=== PATIENT | female | born 1975 | race Caucasian/White ===

== ENCOUNTER 2018-08-25 12:29 | Outpatient (CLI) | payer OTHER, SELFPAY ==
[2018-08-25 13:03] LABS: HCT 41.2 % (36.0-46.0); HGB 13.5 g/dL (12.0-15.5); Mean Corp. HGB Concentration 32.8 g/dL (32.0-36.0); Mean Corpuscular Hemoglobin 28.1 pg (27.0-33.0); Mean Corpuscular Volume 85.7 fL (80-95); Mean Platelet Volume 9.6 fL (8.0-11.0); Platelet Count 335 x1000/uL (130-400); RBC 4.81 m/cumm (4.00-5.20); White Blood Cell Count 7.82 k/cumm (4.4-10.8)
[2018-08-25 13:42] LABS: ALT 20 U/L (12-78); AST 10 U/L (15-37); Albumin 3.4 g/dL (3.4-5.0); Alkaline Phosphatase 55 U/L (46-116); Anion Gap 10.9 mmol/L (3-11); BUN 7 mg/dL (7-18); Bilirubin, Total 0.3 mg/dL (0.2-1.0); CO2 26.1 mmol/L (21.0-32.0); CREATININE 0.61 mg/dL (0.55-1.02); Chloride 105 mmol/L (98-107); Glucose 85 mg/dL (70-100); Potassium 4.1 mmol/L (3.5-5.1); Sodium 142 mmol/L (136-145); Total Protein 6.9 g/dL (6.4-8.2)
[2018-08-25 13:56] LABS: ESR 23 MM/HR (0-20)
== END 2018-08-25 12:49 ==
PROVIDERS: PCP Specialist/Technologist Athletic Trainer; Visit Provider Internal Medicine Rheumatology
DX: M25.50 Pain in unspecified joint (principal); Z79.1 Long term (current) use of non-steroidal anti-inflammatories (NSAID)
CPT/HCPCS: 36415; 80053; 85027; 85652; 86140

== ENCOUNTER 2018-09-18 07:06 | Emergency (ER) | payer OTHER, SELFPAY ==
[2018-09-18 07:14] VITALS: BP 114/90; PULSE 95; RESP 12; TEMP 36.9; O2SAT 97
[2018-09-18] MEDS: Erythromycin Ophth Oint 3.5 GM TUBE OS (07:38)
--- NOTE | 2018-09-18 07:38 | ED.GENADUL_ITS ---
Discharge Plan Disposition Patient Disposition: HOME Condition: Improving Discharge Details Chief Complaint: EyeProblem Clinical Impression: Conjunctivitis Primary Care Provider: [facility] ED Provider: Provider,Temporary Home Meds and New Rx's Prescriptions: New amoxicillin-pot clavulanate 875-125 mg tablet 1 tab PO BID 10 Days Qty: 20 RF: 0 No Action CBD oil -3 times/week 1 ml PO HS RF: 0 L norgest/e.estradiol-e.estrad [Seasonique] 1 EACH tablets,dose pack,3 month 1 tab-cap PO DAILY Qty: 1 RF: 3 bupropion HCl [Wellbutrin] 75 MG tablet 2 tab PO DAILY RF: 0 multivitamin [Multi-Day] 1 EACH tablet 1 tab PO DAILY RF: 0 diclofenac sodium 75 MG tablet,delayed release (DR/EC) 75 mg PO DAILY RF: 0 acetaminophen [Mapap Extra Strength] 500 MG tablet 1,000 mg PO Q6H 5 Days Qty: 60 RF: 0 Discharge Instructions Instructions: Conjunctivitis (ED) Additional Instructions: Please call [facility] eye care tomorrow morning for an appointment in the next couple of days. We will place your name on our care management list to coordinate follow-up as well. Erythromycin ointment 3-4 times daily to left eye for 4-5 days time. Please take Augmentin as prescribed. Return to emergency department for worsening redness, development of pain with movement of the eye, or any other concerns Medical Decision Making 43-year-old female with left conjunctival injection and mild surrounding erythema of the eyelid. No evidence of corneal abrasion, no dendrites, no foreign body. Visual acuity of the affected eye is 20/50; differential diagnosis includes conjunctivitis, preseptal cellulitis. I do not appreciate evidence of post septal cellulitis. Discussed with her that we will treat with both topical and oral antibiotics. She understands return precautions to the ER including worsening, change of vision, pain with movement of the eye. She is a pre-standing patient [facility], and I will ask her to follow-up with them this week for recheck. HPI General Mode of arrival: ambulatory . Date/Time Provider Initiated Documentation: 09/18/18 07:23 . Limitations to Documentation: no limitations . Information obtained by: patient . History of Present Illness 43 year old F presents to the emergency department with the chief complaint of Left eye irritation , described as moderate, Quality is described as constant, and is localized to the eyes and left. Patient reports no radiation. Patient started experiencing this day(s) No exacerbating factors reported . Patient notes no other symptoms.. HPI Narrative: 43-year-old female presents emergency department with 2-3 days of left eye irritation, tearing, swelling of the eyelid that is now progressed to some crusting of the eyelid. She does not have any pain with movement of the eye. not had a fever. No sinus pain or pressure. She states that she has otherwise recently been well Related Data Home Medications Medication Instructions Recorded Confirmed bupropion HCl [Wellbutrin] 2 tab PO DAILY 11/13/15 09/18/18 multivitamin [Multi-Day] 1 tab PO DAILY 03/31/16 09/18/18 diclofenac sodium 75 mg PO DAILY 11/09/16 09/18/18 Cbd Oil 1 ml PO HS 02/01/18 09/18/18 L norgest/e.estradiol-e.estrad 1 tab-cap PO DAILY #1 tab-cap 02/11/18 09/18/18 [Seasonique] acetaminophen [Tylenol Extra 1,000 mg PO Q6H 5 Days #60 tab 05/28/18 09/18/18 Strength] amoxicillin-pot clavulanate 1 tab PO BID 10 Days #20 tab 09/18/18 Previous Rx's Medication Instructions Recorded L norgest/e.estradiol-e.estrad 1 tab-cap PO DAILY #1 tab-cap 02/11/18 [Seasonique] acetaminophen [Tylenol Extra 1,000 mg PO Q6H 5 Days #60 tab 05/28/18 Strength] amoxicillin-pot clavulanate 1 tab PO BID 10 Days #20 tab 09/18/18 Allergies Allergy/AdvReac Type Severity Reaction Status Date / Time No Known Allergies Allergy Unverified 09/18/18 07:19 General Stated Complaint: EyeProblem GEORGI: 4 Review of Systems Review of Systems 6 systems reviewed and otherwise negative PFSH Social History Smoking/Tobacco Use Status: Current every day Surgical History section Cholecystectomy Reduction mammoplasty Exam Narrative Exam Narrative: GEN: awake, alert, oriented 3. Pleasant, well groomed, interactive. HEAD: Normocephalic, atraumatic ENT: Mucous membranes moist, oropharynx unremarkable, External ear exam unremarkable EYES: Visual acuitynoted by nurses 20/25, 20/50 PERRL, EOMI, conjunctival injection. Fluorescein staining and exam performed with no evidence of foreign body, no corneal abrasion, no Eugenia sign. There is erythema and mild swelling of the upper and lower eyelids NECK: Full ROM, no LAUREN, no menigismus Neuro: Grossly normal neurologic exam, conversant, interactive. Psych: Speech fluent, thoughts congruent, affect normal Course Vital Signs Temperature 36.9 C 09/18/18 07:14 Pulse 95 H 09/18/18 07:14 Respiratory Rate 12 09/18/18 07:14 Blood Pressure 114/90 09/18/18 07:14 Pulse Oximetry 97 09/18/18 07:14 Temperature 36.9 C 09/18/18 07:14 Temperature Source Temporal Artery Scan 09/18/18 07:14 Pulse 95 H 09/18/18 07:14 Respiratory Rate 12 09/18/18 07:14 Respiratory Effort Non-Labored 09/18/18 07:17 Blood Pressure 114/90 09/18/18 07:14 Blood Pressure Position Sitting 09/18/18 07:14 Pulse Oximetry 97 09/18/18 07:14 Oxygen Delivery Method Room Air 09/18/18 07:14 Oxygen Flow Rate 0 09/18/18 07:14 Pain Level 6 09/18/18 07:14
== END 2018-09-18 07:42 | disposition home or self-care (01) ==
PROVIDERS: Emergency Provider Emergency Medicine; PCP Specialist/Technologist Athletic Trainer
DX: H10.32 Unspecified acute conjunctivitis, left eye (principal)
CPT/HCPCS: 99283

== ENCOUNTER 2018-09-27 14:29 | Emergency (ER) | payer OTHER, SELFPAY ==
[2018-09-27] VITALS (10 sets, daily range): BP systolic 110–119; BP diastolic 64–87; PULSE 93–121; RESP 14–26; TEMP 36.5–36.7; O2SAT 96–98
--- NOTE | 2018-09-27 14:53 | W.ED.GENAD ---
Discharge Plan Disposition Patient Disposition: HOME Condition: Good Discharge Details Chief Complaint: Allergic Clinical Impression: Urticaria Primary Care Provider: [facility] ED Provider: Isra Gifford Home Meds and New Rx's Prescriptions: New prednisone 20 mg tablet 60 mg PO DAILY 4 Days Qty: 12 RF: 0 No Action CBD oil -3 times/week 1 ml PO HS RF: 0 L norgest/e.estradiol-e.estrad [Seasonique] 1 EACH tablets,dose pack,3 month 1 tab-cap PO DAILY Qty: 1 RF: 3 bupropion HCl [Wellbutrin] 75 MG tablet 2 tab PO DAILY RF: 0 multivitamin [Multi-Day] 1 EACH tablet 1 tab PO DAILY RF: 0 diclofenac sodium 75 MG tablet,delayed release (DR/EC) 75 mg PO DAILY RF: 0 acetaminophen [Mapap Extra Strength] 500 MG tablet 1,000 mg PO Q6H 5 Days Qty: 60 RF: 0 amoxicillin-pot clavulanate 875-125 mg tablet 1 tab PO BID 10 Days Qty: 20 RF: 0 Discharge Instructions Instructions: Urticaria (ED) Medical Decision Making 43 yo female with hx of unspecified arthritis for which she sees a rheumatoligst and states she started a medicine for this with sulfa in it a few weeks ago comes in with itching rash since Wednesday. Was advised to stop the med today and come here for an eval. No respiratory or gi symptoms, normal oropharynx, midline uvula, clear lungs. Has multiple areas of various sizes of mild erythema that blanches and is not tender to palpation. Suspect allrgic reaction, no evidence of anaphylaxis at this time. Will give steroids and benadryl and monitor pt remains stable, clear lungs, no drooling or stridor, hd stable. Will continue oral steroids, advised f/u with her pcp/cement tester assistant and return precautions given Differential Diagnosis urticaria, allergic reaction, anaphylaxis HPI General Mode of arrival: ambulatory. Date/Time Provider Initiated Documentation: 09/27/18 14:34. Limitations to Documentation: no limitations. Information obtained by: patient. History of Present Illness 43 year old F presents to the emergency department with the chief complaint of rash, described as moderate, with intensity rated at 5. Quality is described as other (itching), and is localized to the neck, chest and back. Patient started experiencing this day(s) (2) and it has been constant. other things that improve symptom(s), (benadryl) No exacerbating factors reported . Patient did receive the following treatments prior to arrival, none Related Data Home Medications Medication Instructions Recorded Confirmed bupropion HCl [Wellbutrin] 2 tab PO DAILY 11/13/15 09/18/18 multivitamin [Multi-Day] 1 tab PO DAILY 03/31/16 09/18/18 diclofenac sodium 75 mg PO DAILY 11/09/16 09/18/18 Cbd Oil 1 ml PO HS 02/01/18 09/18/18 L norgest/e.estradiol-e.estrad 1 tab-cap PO DAILY #1 tab-cap 02/11/18 09/18/18 [Seasonique] acetaminophen [Tylenol Extra 1,000 mg PO Q6H 5 Days #60 tab 05/28/18 09/18/18 Strength] amoxicillin-pot clavulanate 1 tab PO BID 10 Days #20 tab 09/18/18 prednisone 60 mg PO DAILY 4 Days #12 tab 09/27/18 Previous Rx's Medication Instructions Recorded L norgest/e.estradiol-e.estrad 1 tab-cap PO DAILY #1 tab-cap 02/11/18 [Seasonique] acetaminophen [Tylenol Extra 1,000 mg PO Q6H 5 Days #60 tab 05/28/18 Strength] amoxicillin-pot clavulanate 1 tab PO BID 10 Days #20 tab 09/18/18 prednisone 60 mg PO DAILY 4 Days #12 tab 09/27/18 Allergies Allergy/AdvReac Type Severity Reaction Status Date / Time No Known Allergies Allergy Unverified 09/18/18 07:19 General Stated Complaint: Allergic GEORGI: 3 Review of Systems Review of Systems All systems reviewed & are unremarkable except as noted in HPI and below Constitutional Denies chills and Denies fever(s) ENT Denies change in voice Cardiovascular Denies chest pain and Denies dyspnea Respiratory Denies dyspnea Gastrointestinal Denies abdominal pain, Denies nausea and Denies vomiting Genitourinary Denies dysuria Exam Const General: no acute distress Orientation: alert [facility] Head: normal to inspection Ears: external ears normal General nose exam: external nose normal Mouth: moist mucous membranes Eyes General: appearance normal, both eyes and all related structures Neck Neck: normal visual inspection Resp Effort & Inspection: normal respiratory effort and able to speak in complete sentences Cardio Rate: regular rate Skin General skin exam: other (urticaria) Neuro General: alert and oriented x3 Extrem General: normal to inspection Psych Mental Status: mental status grossly normal Course Vital Signs Temperature 36.5 C 09/27/18 14:34 Pulse 121 H 09/27/18 14:34 Respiratory Rate 16 09/27/18 14:34 Blood Pressure 119/79 09/27/18 14:34 Pulse Oximetry 96 09/27/18 14:34 Temperature 36.5 C 09/27/18 14:34 Temperature Source Temporal Artery Scan 09/27/18 14:34 Pulse 121 H 09/27/18 14:34 Respiratory Rate 16 09/27/18 14:34 Respiratory Effort 09/27/18 14:44 Respiratory Pattern Tachypnea 09/27/18 14:44 Blood Pressure 119/79 09/27/18 14:34 Blood Pressure Position Sitting 09/27/18 14:34 Pulse Oximetry 96 09/27/18 14:34 Oxygen Delivery Method Room Air 09/27/18 14:34 Oxygen Flow Rate 0 09/27/18 14:34
[2018-09-27] MEDS: diphenhydrAMINE 25 MG CAP PO (14:55)
[2018-09-27] MEDS: predniSONE 20 MG TAB 60 MG PO (14:55)
--- NOTE | 2018-09-27 14:57 | ED.GENADUL_ITS ---
Discharge Plan Disposition Patient Disposition: HOME Condition: Good Discharge Details Chief Complaint: Allergic Clinical Impression: Urticaria Primary Care Provider: [facility] ED Provider: Isra Gifford Home Meds and New Rx's Prescriptions: New prednisone 20 mg tablet 60 mg PO DAILY 4 Days Qty: 12 RF: 0 No Action CBD oil -3 times/week 1 ml PO HS RF: 0 L norgest/e.estradiol-e.estrad [Seasonique] 1 EACH tablets,dose pack,3 month 1 tab-cap PO DAILY Qty: 1 RF: 3 bupropion HCl [Wellbutrin] 75 MG tablet 2 tab PO DAILY RF: 0 multivitamin [Multi-Day] 1 EACH tablet 1 tab PO DAILY RF: 0 diclofenac sodium 75 MG tablet,delayed release (DR/EC) 75 mg PO DAILY RF: 0 acetaminophen [Mapap Extra Strength] 500 MG tablet 1,000 mg PO Q6H 5 Days Qty: 60 RF: 0 amoxicillin-pot clavulanate 875-125 mg tablet 1 tab PO BID 10 Days Qty: 20 RF: 0 Discharge Instructions Instructions: Urticaria (ED) Medical Decision Making 43 yo female with hx of unspecified arthritis for which she sees a rheumatoligst and states she started a medicine for this with sulfa in it a few weeks ago comes in with itching rash since Wednesday. Was advised to stop the med today and come here for an eval. No respiratory or gi symptoms, normal oropharynx, midline uvula, clear lungs. Has multiple areas of various sizes of mild erythema that blanches and is not tender to palpation. Suspect allrgic reaction, no evidence of anaphylaxis at this time. Will give steroids and benadryl and monitor pt remains stable, clear lungs, no drooling or stridor, hd stable. Will continue oral steroids, advised f/u with her pcp/subscription clerk and return precautions given Differential Diagnosis urticaria, allergic reaction, anaphylaxis HPI General Mode of arrival: ambulatory . Date/Time Provider Initiated Documentation: 09/27/18 14:34 . Limitations to Documentation: no limitations . Information obtained by: patient . History of Present Illness 43 year old F presents to the emergency department with the chief complaint of rash, described as moderate, with intensity rated at 5. Quality is described as other (itching), and is localized to the neck, chest and back. Patient started experiencing this day(s) (2) and it has been constant. other things that improve symptom(s), (benadryl) No exacerbating factors reported . Patient did receive the following treatments prior to arrival, none Related Data Home Medications Medication Instructions Recorded Confirmed bupropion HCl [Wellbutrin] 2 tab PO DAILY 11/13/15 09/18/18 multivitamin [Multi-Day] 1 tab PO DAILY 03/31/16 09/18/18 diclofenac sodium 75 mg PO DAILY 11/09/16 09/18/18 Cbd Oil 1 ml PO HS 02/01/18 09/18/18 L norgest/e.estradiol-e.estrad 1 tab-cap PO DAILY #1 tab-cap 02/11/18 09/18/18 [Seasonique] acetaminophen [Tylenol Extra 1,000 mg PO Q6H 5 Days #60 tab 05/28/18 09/18/18 Strength] amoxicillin-pot clavulanate 1 tab PO BID 10 Days #20 tab 09/18/18 prednisone 60 mg PO DAILY 4 Days #12 tab 09/27/18 Previous Rx's Medication Instructions Recorded L norgest/e.estradiol-e.estrad 1 tab-cap PO DAILY #1 tab-cap 02/11/18 [Seasonique] acetaminophen [Tylenol Extra 1,000 mg PO Q6H 5 Days #60 tab 05/28/18 Strength] amoxicillin-pot clavulanate 1 tab PO BID 10 Days #20 tab 09/18/18 prednisone 60 mg PO DAILY 4 Days #12 tab 09/27/18 Allergies Allergy/AdvReac Type Severity Reaction Status Date / Time No Known Allergies Allergy Unverified 09/18/18 07:19 General Stated Complaint: Allergic GEORGI: 3 Review of Systems Review of Systems All systems reviewed & are unremarkable except as noted in HPI and below Constitutional Denies chills and Denies fever(s) ENT Denies change in voice Cardiovascular Denies chest pain and Denies dyspnea Respiratory Denies dyspnea Gastrointestinal Denies abdominal pain, Denies nausea and Denies vomiting Genitourinary Denies dysuria Exam Const General: no acute distress Orientation: alert [facility] Head: normal to inspection Ears: external ears normal General nose exam: external nose normal Mouth: moist mucous membranes Eyes General: appearance normal, both eyes and all related structures Neck Neck: normal visual inspection Resp Effort & Inspection: normal respiratory effort and able to speak in complete sentences Cardio Rate: regular rate Skin General skin exam: other (urticaria) Neuro General: alert and oriented x3 Extrem General: normal to inspection Psych Mental Status: mental status grossly normal Course Vital Signs Temperature 36.5 C 09/27/18 14:34 Pulse 121 H 09/27/18 14:34 Respiratory Rate 16 09/27/18 14:34 Blood Pressure 119/79 09/27/18 14:34 Pulse Oximetry 96 09/27/18 14:34 Temperature 36.5 C 09/27/18 14:34 Temperature Source Temporal Artery Scan 09/27/18 14:34 Pulse 121 H 09/27/18 14:34 Respiratory Rate 16 09/27/18 14:34 Respiratory Effort 09/27/18 14:44 Respiratory Pattern Tachypnea 09/27/18 14:44 Blood Pressure 119/79 09/27/18 14:34 Blood Pressure Position Sitting 09/27/18 14:34 Pulse Oximetry 96 09/27/18 14:34 Oxygen Delivery Method Room Air 09/27/18 14:34 Oxygen Flow Rate 0 09/27/18 14:34
== END 2018-09-27 16:19 | disposition home or self-care (01) ==
PROVIDERS: Emergency Provider Emergency Medicine; PCP Specialist/Technologist Athletic Trainer
DX: L50.0 Allergic urticaria (principal); T49.0X5A Adverse effect of local antifungal, anti-infective and anti-inflammatory drugs, initial encounter
CPT/HCPCS: 99283; J7512

== ENCOUNTER 2018-11-03 08:33 | Emergency (ER) | payer OTHER, SELFPAY ==
[2018-11-03 08:36] VITALS: BP 153/78; PULSE 92; RESP 12; TEMP 36.3; O2SAT 96
--- NOTE | 2018-11-03 08:48 | W.ED.GENAD ---
Discharge Plan Disposition Patient Disposition: HOME Condition: Improving Discharge Details Chief Complaint: Sorethroat Clinical Impression: Acute pharyngitis Primary Care Provider: [facility] ED Provider: Corey Alvarez Home Meds and New Rx's Prescriptions: New penicillin V potassium 500 mg tablet 500 mg PO TID 10 Days Qty: 30 RF: 0 Continued CBD oil -3 times/week 1 ml PO HS RF: 0 L norgest/e.estradiol-e.estrad [Seasonique] 1 EACH tablets,dose pack,3 month 1 tab-cap PO DAILY Qty: 1 RF: 3 bupropion HCl [Wellbutrin] 75 MG tablet 2 tab PO DAILY RF: 0 multivitamin [Multi-Day] 1 EACH tablet 1 tab PO DAILY RF: 0 diclofenac sodium 75 MG tablet,delayed release (DR/EC) 75 mg PO DAILY RF: 0 acetaminophen [Mapap Extra Strength] 500 MG tablet 1,000 mg PO Q6H 5 Days Qty: 60 RF: 0 Discharge Instructions Instructions: Pharyngitis (ED) Additional Instructions: Warm, salt water gargles, Cepacol or other throat lozenges, Tylenol and/or ibuprofen as needed for pain. Small, frequent sips of fluids or popsicles to maintain hydration. Please take penicillin as prescribed for its entire course. Follow-up with regular doctor if not improving in 5 days time Medical Decision Making 43-year-old female presents from home with days of sore throat. She has an exudative pharyngitis and her strep test is positive. She will be placed on a course of penicillin. Discussed with her home management as well as return and follow-up precautions HPI General Mode of arrival: ambulatory. Date/Time Provider Initiated Documentation: 11/03/18 08:44. Limitations to Documentation: no limitations. Information obtained by: patient. History of Present Illness 43 year old F presents to the emergency department with the chief complaint of Sore throat times days with swelling and white exudate, described as moderate and similar to prior episodes, Quality is described as aching, and is localized to the mouth. Patient reports no radiation. Patient started experiencing this day(s) and it has been constant. No relieving factors improve symptom(s), No exacerbating factors reported . Patient notes fever/chills. Related Data Home Medications Medication Instructions Recorded Confirmed bupropion HCl [Wellbutrin] 2 tab PO DAILY 11/13/15 11/03/18 multivitamin [Multi-Day] 1 tab PO DAILY 03/31/16 11/03/18 diclofenac sodium 75 mg PO DAILY 11/09/16 11/03/18 Cbd Oil 1 ml PO HS 02/01/18 11/03/18 L norgest/e.estradiol-e.estrad 1 tab-cap PO DAILY #1 tab-cap 02/11/18 11/03/18 [Seasonique] acetaminophen [Mapap Extra 1,000 mg PO Q6H 5 Days #60 tab 05/28/18 11/03/18 Strength] penicillin V potassium 500 mg PO TID 10 Days #30 tab 11/03/18 Previous Rx's Medication Instructions Recorded L norgest/e.estradiol-e.estrad 1 tab-cap PO DAILY #1 tab-cap 02/11/18 [Seasonique] acetaminophen [Mapap Extra 1,000 mg PO Q6H 5 Days #60 tab 05/28/18 Strength] penicillin V potassium 500 mg PO TID 10 Days #30 tab 11/03/18 Allergies Allergy/AdvReac Type Severity Reaction Status Date / Time No Known Allergies Allergy Unverified 11/03/18 08:38 General Stated Complaint: Sorethroat GEORGI: 4 Review of Systems Review of Systems 6 systems reviewed and otherwise - [facility] Surgical History section Cholecystectomy Reduction mammoplasty Social History Smoking/Tobacco Use Status: Current every day Exam Narrative Exam Narrative: GEN: awake, alert, oriented 3. Pleasant, well groomed, interactive. HEAD: Normocephalic, atraumatic ENT: Mucous membranes moist, oropharynx with erythematous tonsillar pillars with white exudate, the uvula is midline and there is no asymmetry. She has anterior tonsillar lymphadenopathy. Tympanic membranes clear bilaterally, External ear exam unremarkable EYES: PERRL, EOMI NECK: Full ROM, no LAUREN, no menigismus CHEST/RESP: Nontender, clear to auscultation bilateral, no wheeze/rhonchi/rales CARDIOVASCULAR: RRR, no murmur, rub swetha. 2+ Rad pulse bilateral ABDOMEN: Soft, nontender, no mass. +Bowel sounds EXT: Full ROM, no edema, no rash Neuro: Grossly normal neurologic exam, conversant, interactive. Psych: Speech fluent, thoughts congruent, affect normal Course Vital Signs Temperature 36.3 C L 11/03/18 08:36 Pulse 92 H 11/03/18 08:36 Respiratory Rate 12 11/03/18 08:36 Blood Pressure 153/78 H 11/03/18 08:36 Pulse Oximetry 96 11/03/18 08:36 Temperature 36.3 C L 11/03/18 08:36 Temperature Source Temporal Artery Scan 11/03/18 08:36 Pulse 92 H 11/03/18 08:36 Respiratory Rate 12 11/03/18 08:36 Respiratory Effort Non-Labored 11/03/18 08:37 Blood Pressure 153/78 H 11/03/18 08:36 Blood Pressure Position Supine 11/03/18 08:36 Pulse Oximetry 96 11/03/18 08:36 Oxygen Delivery Method Room Air 11/03/18 08:36 Oxygen Flow Rate 0 11/03/18 08:36 Pain Level 8 11/03/18 08:36
--- NOTE | 2018-11-03 08:51 | ED.GENADUL_ITS ---
Discharge Plan Disposition Patient Disposition: HOME Condition: Improving Discharge Details Chief Complaint: Sorethroat Clinical Impression: Acute pharyngitis Primary Care Provider: See [facility] ED Provider: Corey Alvarez Home Meds and New Rx's Prescriptions: New penicillin V potassium 500 mg tablet 500 mg PO TID 10 Days Qty: 30 RF: 0 Continued CBD oil -3 times/week 1 ml PO HS RF: 0 L norgest/e.estradiol-e.estrad [Seasonique] 1 EACH tablets,dose pack,3 month 1 tab-cap PO DAILY Qty: 1 RF: 3 bupropion HCl [Wellbutrin] 75 MG tablet 2 tab PO DAILY RF: 0 multivitamin [Multi-Day] 1 EACH tablet 1 tab PO DAILY RF: 0 diclofenac sodium 75 MG tablet,delayed release (DR/EC) 75 mg PO DAILY RF: 0 acetaminophen [Mapap Extra Strength] 500 MG tablet 1,000 mg PO Q6H 5 Days Qty: 60 RF: 0 Discharge Instructions Instructions: Pharyngitis (ED) Additional Instructions: Warm, salt water gargles, Cepacol or other throat lozenges, Tylenol and/or ibuprofen as needed for pain. Small, frequent sips of fluids or popsicles to maintain hydration. Please take penicillin as prescribed for its entire course. Follow-up with regular doctor if not improving in 5 days time Medical Decision Making 43-year-old female presents from home with days of sore throat. She has an exu dative pharyngitis and her strep test is positive. She will be placed on a course of penicillin. Discussed with her home management as well as return and follow-up precautions HPI General Mode of arrival: ambulatory . Date/Time Provider Initiated Documentation: 11/03/18 08:44 . Limitations to Documentation: no limitations . Information obtained by: patient . History of Present Illness 43 year old F presents to the emergency department with the chief complaint of Sore throat times days with swelling and white exudate, described as moderate and similar to prior episodes, Quality is described as aching, and is localized to the mouth. Patient reports no radiation. Patient started experiencing this day(s) and it has been constant. No relieving factors improve symptom(s), No exacerbating factors reported . Patient notes fever/chills. Related Data Home Medications Medication Instructions Recorded Confirmed bupropion HCl [Wellbutrin] 2 tab PO DAILY 11/13/15 11/03/18 multivitamin [Multi-Day] 1 tab PO DAILY 03/31/16 11/03/18 diclofenac sodium 75 mg PO DAILY 11/09/16 11/03/18 Cbd Oil 1 ml PO HS 02/01/18 11/03/18 L norgest/e.estradiol-e.estrad 1 tab-cap PO DAILY #1 tab-cap 02/11/18 11/03/18 [Seasonique] acetaminophen [Mapap Extra 1,000 mg PO Q6H 5 Days #60 tab 05/28/18 11/03/18 Strength] penicillin V potassium 500 mg PO TID 10 Days #30 tab 11/03/18 Previous Rx's Medication Instructions Recorded L norgest/e.estradiol-e.estrad 1 tab-cap PO DAILY #1 tab-cap 02/11/18 [Seasonique] acetaminophen [Mapap Extra 1,000 mg PO Q6H 5 Days #60 tab 05/28/18 Strength] penicillin V potassium 500 mg PO TID 10 Days #30 tab 11/03/18 Allergies Allergy/AdvReac Type Severity Reaction Status Date / Time No Known Allergies Allergy Unverified 11/03/18 08:38 General Stated Complaint: Sorethroat GEORGI: 4 Review of Systems Review of Systems 6 systems reviewed and otherwise - [facility] Surgical History section Cholecystectomy Reduction mammoplasty Social History Smoking/Tobacco Use Status: Current every day Exam Narrative Exam Narrative: GEN: awake, alert, oriented 3. Pleasant, well groomed, interactive. HEAD: Normocephalic, atraumatic ENT: Mucous membranes moist, oropharynx with erythematous tonsillar pillars with white exudate, the uvula is midline and there is no asymmetry. She has anterior tonsillar lymphadenopathy. Tympanic membranes clear bilaterally, External ear exam unremarkable EYES: PERRL, EOMI NECK: Full ROM, no LAUREN, no menigismus CHEST/RESP: Nontender, clear to auscultation bilateral, no wheeze/rhonchi/rales CARDIOVASCULAR: RRR, no murmur, rub swetha. 2+ Rad pulse bilateral ABDOMEN: Soft, nontender, no mass. +Bowel sounds EXT: Full ROM, no edema, no rash Neuro: Grossly normal neurologic exam, conversant, interactive. Psych: Speech fluent, thoughts congruent, affect normal Course Vital Signs Temperature 36.3 C L 11/03/18 08:36 Pulse 92 H 11/03/18 08:36 Respiratory Rate 12 11/03/18 08:36 Blood Pressure 153/78 H 11/03/18 08:36 Pulse Oximetry 96 11/03/18 08:36 Temperature 36.3 C L 11/03/18 08:36 Temperature Source Temporal Artery Scan 11/03/18 08:36 Pulse 92 H 11/03/18 08:36 Respiratory Rate 12 11/03/18 08:36 Respiratory Effort Non-Labored 11/03/18 08:37 Blood Pressure 153/78 H 11/03/18 08:36 Blood Pressure Position Supine 11/03/18 08:36 Pulse Oximetry 96 11/03/18 08:36 Oxygen Delivery Method Room Air 11/03/18 08:36 Oxygen Flow Rate 0 11/03/18 08:36 Pain Level 8 11/03/18 08:36
== END 2018-11-03 09:06 | disposition home or self-care (01) ==
PROVIDERS: Emergency Provider Emergency Medicine; PCP Specialist/Technologist Athletic Trainer
DX: J02.0 Streptococcal pharyngitis (principal); F17.210 Nicotine dependence, cigarettes, uncomplicated
CPT/HCPCS: 87880; 99283

== ENCOUNTER 2018-11-30 12:07 | Outpatient (CLI) | payer OTHER, SELFPAY ==
[2018-11-30 13:37] LABS: HCT 40.7 % (36.0-46.0); Mean Corp. HGB Concentration 31.9 g/dL (32.0-36.0); Mean Corpuscular Hemoglobin 27.6 pg (27.0-33.0); Mean Corpuscular Volume 86.4 fL (80-95); Mean Platelet Volume 9.9 fL (8.0-11.0); Platelet Count 261 x1000/uL (130-400); RBC 4.71 m/cumm (4.00-5.20); RBC Distribution Width 15.2 % (11.7-14.6); White Blood Cell Count 4.32 k/cumm (4.4-10.8)
[2018-11-30 13:47] LABS: ALT 22 U/L (12-78); AST 19 U/L (15-37); Albumin 3.2 g/dL (3.4-5.0); Alkaline Phosphatase 56 U/L (46-116); Anion Gap 9.1 mmol/L (3-11); BUN 6 mg/dL (7-18); Bilirubin, Total 0.2 mg/dL (0.2-1.0); C-Reactive Protein 2.97 mg/dL (0.0-0.3); CO2 28.9 mmol/L (21.0-32.0); CREATININE 0.79 mg/dL (0.55-1.02); Calcium 8.7 mg/dL (8.5-10.1); Chloride 104 mmol/L (98-107); Glucose 123 mg/dL (70-100); Potassium 3.6 mmol/L (3.5-5.1); Sodium 142 mmol/L (136-145); Total Protein 6.8 g/dL (6.4-8.2)
[2018-11-30 14:29] LABS: ESR 24 MM/HR (0-20)
== END 2018-11-30 12:27 ==
PROVIDERS: PCP Specialist/Technologist Athletic Trainer; Visit Provider Internal Medicine Rheumatology
DX: M13.80 Other specified arthritis, unspecified site (principal); Z79.1 Long term (current) use of non-steroidal anti-inflammatories (NSAID)
CPT/HCPCS: 36415; 80053; 85027; 85652; 86140

== ENCOUNTER 2018-12-06 11:21 | Outpatient (REF) | payer OTHER, SELFPAY ==
[2018-12-07 08:47] LABS: Glucose 90 mg/dL (70-100)
[2018-12-07 18:22] LABS: Cholesterol 241 mg/dL (50-200); HDL Cholesterol 39 mg/dL (40-60); LDL CHOLESTEROL 153 mg/dL (<100); Triglyceride 290 mg/dL (30-150)
[2018-12-08 09:58] LABS: HIV-1/2 Ag & Ab Screen Negative (NEGAT)
[2018-12-08 10:15] LABS: Hepatitis C Ab w Rflx HCV PCR Negative (NEGAT)
== END 2018-12-06 11:41 ==
LOC: NCHCN 11:21
PROVIDERS: PCP Specialist/Technologist Athletic Trainer; Visit Provider Family Medicine
DX: Z00.00 Encounter for general adult medical examination without abnormal findings (principal); Z13.1 Encounter for screening for diabetes mellitus; Z11.59 Encounter for screening for other viral diseases; Z13.220 Encounter for screening for lipoid disorders; Z11.4 Encounter for screening for human immunodeficiency virus [HIV]
CPT/HCPCS: 80061; 82947; 83721; 86803; 87389

== ENCOUNTER 2018-12-08 11:50 | Outpatient (CLI) | payer OTHER, SELFPAY ==
--- NOTE | 2018-12-08 12:18 | DI.RAD_ITS ---
SYMPTOM/DIAGNOSIS: RT HIP AND PELVIS PAIN, FELL, INJURY, W19.XXXA RIGHT HIP AND PELVIS: Comparison is made with 09/16/16. The hip joint spaces are well maintained. There is mild superior acetabular spurring. Femoral heads appear intact. SI joints are unremarkable. IMPRESSION: Minimal acetabular spurring.
[2018-12-08 13:14] LABS: TSH (W/Ref FT4) 1.23 uIU/mL (0.358-3.74)
== END 2018-12-08 12:10 ==
PROVIDERS: PCP Specialist/Technologist Athletic Trainer; Visit Provider Internal Medicine Rheumatology
DX: R63.4 Abnormal weight loss (principal); M25.551 Pain in right hip; R10.2 Pelvic and perineal pain; W19.XXXA Unspecified fall, initial encounter
CPT/HCPCS: 36415; 73502; 84443

== ENCOUNTER 2018-12-29 00:28 | Outpatient (CLI) | payer OTHER, SELFPAY ==
--- NOTE | 2018-12-29 09:45 | DI.CT_ITS ---
SYMPTOM/DIAGNOSIS: UNINTENTIONAL WT LOSS, R63.4, PRIOR TO STARTING METHOTREXATE CHEST/ABDOMEN AND PELVIC CT: CT scan of the chest, abdomen and pelvis was performed following the uneventful administration of intravenous and oral contrast material. There are no priors for comparison. ABDOMEN AND PELVIS: The liver is normal in size. No hepatic mass is seen The portal, superior mesenteric and splenic veins are patent. The patient is status post cholecystectomy. No biliary ductal dilatation is present. The pancreas and spleen are unremarkable. There is nodularity of the adrenal glands. The right adrenal gland nodule measures 2 by 1.6 cm. The left adrenal gland nodule measures 1.3 by 0.5 cm. The kidneys show normal and symmetric enhancement. No solid renal mass is appreciated. No evidence of obstruction is seen. The urinary bladder is intact. The reproductive organs are unremarkable. The abdominal aorta is of normal caliber. No significant abdominal or pelvic adenopathy, ascites or pneumoperitoneum is present. There is question of bowel wall thickening in the proximal transverse colon. The segment measures approximately 4 cm. in length. While this may represent peristalsis or decompressed bowel, a mass cannot be entirely excluded in this region. The remainder of the colon is normal in caliber and appearance. There is no evidence of an acute appendicitis. The small bowel is unremarkable. Degenerative changes are seen in the spine. IMPRESSION: 1. Question of bowel wall thickening and luminal narrowing seen in the proximal transverse colon. This may represent decompressed bowel/peristalsis but a mass cannot be excluded. No significant pericolonic inflammatory changes are seen to suggest inflammatory or infectious process. Barium enema should be considered for further evaluation in this patient. 2. Bilateral adrenal nodules. These are nonspecific but may represent adrenal adenomas. Follow up as clinically appropriate. 3. Status post cholecystectomy. CHEST: The thoracic aorta is of normal caliber. Heart size is within normal limits. No significant pericardial effusion is seen. No pleural effusion or pneumothorax is identified. No significant thoracic adenopathy is identified. Dependent atelectatic changes are seen in the lung bases. No focal consolidating infiltrates are seen. No pulmonary nodules are identified. The tracheobronchial tree is unremarkable. There is a sclerotic focus seen in the T 10 vertebral body and the C 6 vertebral body. These findings are nonspecific. IMPRESSION: 1. No evidence of thoracic adenopathy or pulmonary mass. 2. Two sclerotic foci seen, one in the cervical and one in the thoracic spine. These are nonspecific. If there is continued concern, a bone scan and/or MRI may be considered for further evaluation.
[2018-12-29] MEDS: Breeza Beverage 473 ML BTL PO ×2 (09:47→09:48)
[2018-12-29] MEDS: Omnipaque 350 MG/ML 100 ML BTL IJ (09:48)
[2018-12-29] MEDS: Omnipaque 350 MG/ML 50 ML BTL PO (09:48)
[2018-12-29] MEDS: Normal Saline Flush 10 ML SYR IVP (09:49)
== END 2018-12-29 00:48 ==
PROVIDERS: PCP Specialist/Technologist Athletic Trainer; Visit Provider Specialist/Technologist Athletic Trainer
DX: R63.4 Abnormal weight loss (principal); K63.89 Other specified diseases of intestine; E27.8 Other specified disorders of adrenal gland; M13.80 Other specified arthritis, unspecified site
CPT/HCPCS: 74177; 71260; J3490; Q9967

== ENCOUNTER 2019-01-10 00:40 | Outpatient (CLI) | payer OTHER, SELFPAY ==
--- NOTE | 2019-01-10 09:45 | DI.NM_ITS ---
SYMPTOMS/DIAGNOSIS: ABNORMAL CHEST CT, R91.8, SCLEROSIS AT C6 AND T10 WHOLE BODY BONE SCAN: Comparison is made with CT of the chest, abdomen and pelvis dated December,. 25.2 mCi of technetium 99m MDP was administered IV. There is faintly increased activity on the left side of the mid to lower thoracic spine, which appears to correspond to the T9 level on the left. There is mildly increased activity seen in the left ankle. The remainder of the skeletal labelling is unremarkable. No increased activity is seen in the lower thoracic or lumbar spine where additional small sclerotic lesions are seen. The largest sclerotic lesion is in the L3 vertebral body. There is no abnormal increased activity in this area. IMPRESSION: No suspicious bony labelling is identified.
== END 2019-01-10 01:00 ==
PROVIDERS: PCP Specialist/Technologist Athletic Trainer; Visit Provider Specialist/Technologist Athletic Trainer
DX: R91.8 Other nonspecific abnormal finding of lung field (principal); M89.8X8 Other specified disorders of bone, other site
CPT/HCPCS: 78306

== ENCOUNTER 2019-01-12 00:33 | Outpatient (CLI) | payer OTHER, SELFPAY ==
--- NOTE | 2019-01-12 10:23 | DI.RAD_ITS ---
SYMPTOM/DIAGNOSIS: F/U ABNL FINDINGS ON CT, R93.5, POSSIBLE BOWEL WALL THICKENING AND LUMINAL NARROWING IN PROX COLON, H/O WT LOSS AIR CONTRAST BARIUM ENEMA: Fluoroscopy Time: 1.[address] scan is 12/29/18. The preliminary view of the abdomen shows no evidence of bowel obstruction. There are surgical clips in the right upper quadrant of the abdomen consistent with prior cholecystectomy. Air contrast barium enema was performed according to protocol. The patient tolerated the procedure well and left the department in stable condition. There is no bowel wall thickening. No intraluminal or extraluminal masses are identified. There is normal reflex seen into the small bowel. The appendix appears grossly unremarkable. IMPRESSION: Normal barium enema.
== END 2019-01-12 00:53 ==
PROVIDERS: PCP Specialist/Technologist Athletic Trainer; Visit Provider Specialist/Technologist Athletic Trainer
DX: K63.89 Other specified diseases of intestine (principal); R63.4 Abnormal weight loss; R93.5 Abnormal findings on diagnostic imaging of other abdominal regions, including retroperitoneum
CPT/HCPCS: 74280

== ENCOUNTER 2019-02-09 16:44 | Outpatient (REF) | payer OTHER, SELFPAY ==
[2019-02-13 14:05] LABS: Chlamydia Result Negative; GC Result Negative; Specimen Description CERVIX
== END 2019-02-09 17:04 ==
LOC: LBN 16:44
PROVIDERS: PCP Specialist/Technologist Athletic Trainer; Visit Provider Obstetrics & Gynecology
DX: Z11.3 Encounter for screening for infections with a predominantly sexual mode of transmission (principal); Z01.419 Encounter for gynecological examination (general) (routine) without abnormal findings
CPT/HCPCS: 87491; 87591

== ENCOUNTER 2019-03-22 02:18 | Outpatient (CLI) | payer OTHER, SELFPAY | END 2019-03-22 02:38 | PROVIDERS: PCP Specialist/Technologist Athletic Trainer; Visit Provider Internal Medicine | DX: E27.9 Disorder of adrenal gland, unspecified (principal) | CPT/HCPCS: 36415; 82533 ==

== ENCOUNTER 2019-03-31 07:18 | Outpatient (CLI) | payer OTHER, SELFPAY ==
[2019-04-04 09:00] LABS: Dexamethasone Suppression 3 ug/dl
== END 2019-03-31 07:38 ==
PROVIDERS: PCP Specialist/Technologist Athletic Trainer; Visit Provider Internal Medicine
DX: E27.9 Disorder of adrenal gland, unspecified (principal)
CPT/HCPCS: 36415; 82533

== ENCOUNTER 2019-04-04 12:00 | Outpatient (REF) | payer OTHER, SELFPAY ==
[2019-04-05 09:15] LABS: Creatinine,Urine 195.95 mg/dL
[2019-04-05 09:26] LABS: Creatinine,24hr Ur 1.18 g/24hr (0.60-1.80); Total Volume 675 ml
[2019-04-07 17:58] LABS: Cortisol, U 15 mcg/24 h (3.5-45); Urine Volume 675 mL
== END 2019-04-04 12:20 ==
LOC: LBN 12:00
PROVIDERS: PCP Specialist/Technologist Athletic Trainer; Visit Provider Internal Medicine
DX: E27.9 Disorder of adrenal gland, unspecified (principal)
CPT/HCPCS: 81050; 82530; 82570; 83789

== ENCOUNTER 2019-04-06 11:20 | Outpatient (CLI) | payer OTHER, SELFPAY ==
[2019-04-06 11:56] LABS: HCT 40.5 % (36.0-46.0); HGB 13.2 g/dL (12.0-15.5); Mean Corp. HGB Concentration 32.6 g/dL (32.0-36.0); Mean Platelet Volume 9.6 fL (8.0-11.0); Platelet Count 349 x1000/uL (130-400); RBC 4.71 m/cumm (4.00-5.20); RBC Distribution Width 14.5 % (11.7-14.6); White Blood Cell Count 9.88 k/cumm (4.4-10.8)
[2019-04-06 12:31] LABS: ESR 22 MM/HR (0-20)
[2019-04-06 12:56] LABS: ALT 21 U/L (12-78); AST 14 U/L (15-37); Albumin 3.4 g/dL (3.4-5.0); Alkaline Phosphatase 58 U/L (46-116); Anion Gap 10.2 mmol/L (3-11); BUN 10 mg/dL (7-18); Bilirubin, Total 0.2 mg/dL (0.2-1.0); C-Reactive Protein 1.89 mg/dL (0.0-0.3); CO2 25.8 mmol/L (21.0-32.0); CREATININE 0.71 mg/dL (0.55-1.02); Calcium 9.4 mg/dL (8.5-10.1); Chloride 105 mmol/L (98-107); Glucose 117 mg/dL (70-100); Potassium 3.9 mmol/L (3.5-5.1); Sodium 141 mmol/L (136-145); Total Protein 6.9 g/dL (6.4-8.2)
== END 2019-04-06 11:40 ==
PROVIDERS: PCP Specialist/Technologist Athletic Trainer; Visit Provider Internal Medicine Rheumatology
DX: M13.80 Other specified arthritis, unspecified site (principal); Z79.1 Long term (current) use of non-steroidal anti-inflammatories (NSAID)
CPT/HCPCS: 36415; 80053; 85027; 85652; 86140

== ENCOUNTER 2020-06-03 16:02 | Outpatient (REF) | payer OTHER, SELFPAY ==
[2020-06-05 18:50] LABS: SARS-CoV-2 RNA Undetected (Undetected); SARS-CoV-2 Specimen Source Nasopharynx
== END 2020-06-03 16:22 ==
LOC: NCHCN 16:02
PROVIDERS: PCP Specialist/Technologist Athletic Trainer; Visit Provider Nurse Practitioner Family
DX: Z11.59 Encounter for screening for other viral diseases (principal)
CPT/HCPCS: U0003

== ENCOUNTER 2020-06-04 00:25 | Outpatient (CLI) | payer OTHER, SELFPAY ==
[2020-06-04] MEDS: Omnipaque 350 MG/ML 50 ML BTL IJ (06:50)
[2020-06-04] MEDS: Breeza Beverage 473 ML BTL PO ×2 (06:52→06:53)
--- NOTE | 2020-06-04 08:54 | DI.CT_ITS ---
EXAM: CT ABDOMEN PELVIS W CLINICAL HISTORY: ACUTE ABD PAIN, R10.9. TECHNIQUE: Imaging Protocol: Axial computed tomography images with coronal and sagittal reformatted images were created and reviewed CONTRAST MATERIAL: Intravenous: Omnipaque 350 Contrast volume:100 ml Oral: yes / COMPARISON: CT CT CHEST/ABD/PEL W from 12/29/2018 FINDINGS: ABDOMEN: Lung Bases: Normal where visualized. Liver: Normal density. No measurable mass. Gallbladder and biliary tract: Status post cholecystectomy. Pancreas: Normal density, no abnormal calcifications or inflammatory process. Spleen: Normal. Kidneys: Normal size, contour and axis. No radiodense stones or obstructive uropathy. No masses seen. Adrenal glands: Stable small low-density adrenal nodules.. Abdominal Aorta: Abdominal portion non-dilated. PELVIS: Bladder: Symmetric distention, no gross wall thickening. Bowel: There is wall thickening of the distal rectum. There is no evidence of abscess or perforation . The remainder of the colon is unremarkable. There is a normal quantity of stool. No diverticula are seen. The small bowel is unremarkable. The appendix appears normal. Peritoneal cavity: No ascites, collection or mesenteric inflammatory response. Bones: Mild degenerative disc changes. Reproductive organs: Within normal limits. Lymph nodes: Unremarkable. Impression: Inflammation of the distal rectum. RADIATION DOSE DELIVERED: Total DLP DATA REPOSITORY: All CT scans at this facility are submitted to the National Radiology Data Registry (NRDR) Dose Index Registry (DIR) with the [employer] (A[employer]). RADIATION OPTIMIZATION: All CT scans at this facility use at least one of these dose optimization te chniques: automated exposure control; mA and/or kV adjustment per patient size (includes targeted exa ms where dose is matched to clinical indication); or iterative reconstruction.
[2020-06-04] MEDS: Normal Saline - Diluent 50 ML VIAL IV (08:59)
[2020-06-04] MEDS: Omnipaque 350 MG/ML 100 ML BTL IJ (09:00)
[2020-06-04] MEDS: Normal Saline Flush 10 ML SYR IVP (09:02)
[2020-06-04 09:12] LABS: HCT 38.5 % (36.0-46.0); HGB 12.8 g/dL (12.0-15.5); Mean Corp. HGB Concentration 33.2 g/dL (32.0-36.0); Mean Corpuscular Hemoglobin 27.6 pg (27.0-33.0); Mean Platelet Volume 9.5 fL (8.0-11.0); Platelet Count 238 x1000/uL (130-400); RBC 4.64 m/cumm (4.00-5.20); RBC Distribution Width 14.8 % (11.7-14.6); White Blood Cell Count 8.03 k/cumm (4.4-10.8)
[2020-06-04 09:27] LABS: C-Reactive Protein 6.81 mg/dL (0.0-0.3)
[2020-06-04 09:30] LABS: ALT 60 U/L (14-59); AST 58 U/L (15-37); Albumin 2.8 g/dL (3.4-5.0); Alkaline Phosphatase 83 U/L (46-116); Anion Gap 11.2 mmol/L (3-11); BUN 6 mg/dL (7-18); Bilirubin, Total 0.4 mg/dL (0.2-1.0); CO2 25.8 mmol/L (21.0-32.0); CREATININE 0.77 mg/dL (0.55-1.02); Calcium 8.3 mg/dL (8.5-10.1); Chloride 102 mmol/L (98-107); Glucose 84 mg/dL (74-106); Potassium 3.4 mmol/L (3.5-5.1); Sodium 139 mmol/L (136-145); Total Protein 6.7 g/dL (6.4-8.2)
== END 2020-06-04 00:45 ==
PROVIDERS: PCP Specialist/Technologist Athletic Trainer; Visit Provider Nurse Practitioner Family
DX: R10.9 Unspecified abdominal pain (principal); K62.89 Other specified diseases of anus and rectum
CPT/HCPCS: 80053; 85027; 74177; 86140; J3490; Q9967

== ENCOUNTER 2020-06-10 09:16 | Outpatient (REF) | payer OTHER, SELFPAY ==
[2020-06-11 11:07] LABS: Campylobacter PCR Negative (Negative); Salmonella PCR Negative (Negative); Shiga Toxin PCR Negative (Negative); Shigella/Enteroinvasive Ecoli Negative (Negative)
[2020-06-12 17:03] LABS: Calprotectin <15.6 mcg/g
== END 2020-06-10 09:36 ==
LOC: NCHCN 09:16
PROVIDERS: PCP Specialist/Technologist Athletic Trainer; Referring Provider Nurse Practitioner Family; Visit Provider Nurse Practitioner Family
DX: R10.9 Unspecified abdominal pain (principal)
CPT/HCPCS: 87329; 87505; 83993; 87324

== ENCOUNTER 2020-07-18 16:34 | Emergency (ER) | payer OTHER, SELFPAY ==
[2020-07-18 16:38] VITALS: BP 138/79; PULSE 101; RESP 16; TEMP 36.1; O2SAT 98
--- NOTE | 2020-07-18 16:45 | DI.RAD_ITS ---
EXAM: XR HIP LT COMPLETE AP PELVIS CLINICAL HISTORY: pain s/p fall. TECHNIQUE: 2D digital imaging was performed. COMPARISON: CT CT ABDOMEN PELVIS W from 06/04/2020 FINDINGS: BONES: No acute fracture is present. No bony destructive lesion is seen. There is a small enthesophyt e of the greater trochanter on the left. This can be seen on the prior CT scan from 06/04/2020. JOINTS: No dislocation present. SOFT TISSUE: Normal. IMPRESSION: Unremarkable radiographs of the left hip. Unremarkable radiographs of the pelvis DATA REPOSITORY: RADIATION DOSE DELIVERED:
--- NOTE | 2020-07-18 16:47 | ED.GENADUL_ITS ---
Discharge Plan Disposition Patient Disposition: HOME Condition: Stable Discharge Details Clinical Impression: Contusion of knee, left, Contusion of hip, left, Wound infection Primary Care Provider: See [facility] ED Provider: Isra Gifford Home Meds and New Rx's Prescriptions: New amoxicillin-pot clavulanate [Augmentin] 875-125 mg tablet 1 tab PO BID Qty: 14 RF: 0 Continued L norgest/e.estradiol-e.estrad [Seasonique] 1 EACH tablets,dose pack,3 month 1 tab-cap PO DAILY Qty: 1 RF: 3 bupropion HCl [Wellbutrin] 75 MG tablet 2 tab PO DAILY RF: 0 multivitamin [Multi-Day] 1 EACH tablet 1 tab PO DAILY RF: 0 acetaminophen [Mapap Extra Strength] 500 MG tablet 1,000 mg PO Q6H 5 Days Qty: 60 RF: 0 ibuprofen [Ibuprofen IB] 200 mg Tablet 400 mg PO PRN PRNRF: 0 Discharge Instructions Instructions: Contusion in Adults (ED) Additional Instructions: you can take 1000mg tylenol and 600mg ibuprofen every 6 hours for pain as needed if pain is not improving within a week follow up with your primary care provider return to the emergency department for severe worsening pain, fevers or if you feel more ill Medical Decision Making 45 yo female comes in with left knee pain. She states yesterday she was going up a stone step and fell with her left knee landing on the step. No head trauma or loc. No head pain, neck pain, chest pain, abdominal pain, arm pain or right leg pain. HAs pain over anterior knee with several small abrasions and erythema, no deep lacerations. Does have full rom of the knee though with pain and has swelling anteriorly. No bony tenderness of the left hip and no ankle tenderness normal sensation and normal pulses. Does have some discomfort in hip with sitting on the left.Suspect contusion but will obtain xrays to evaluate for fx no acute findings on imaging, suspect contusion. Will have her continue RICE therapy and advised f/u with pcp if still in pain in a week return precautions given. I am placing on an antibiotic given she does have mild erythema surrounding her abrasions to cover for wound infection Differential Diagnosis Differential Diagnosis: contusion, fracture, abrasion Imaging Data Radiologic Study: Attestation: I personally reviewed and interpreted this imaging study as follows: Imaging: X-Ray Radiologist's impression: knee xray IMPRESSION: 1. No acute fracture. 2. Possible small joint effusion. 3. Mild medial femorotibial joint space narrowing suggesting early osteoarthritis. 4. Mild prepatellar edema. Radiologic Study #2: Attestation: I personally reviewed and interpreted this imaging study as follows: Imaging: X-Ray Radiologist's impression: PROCEDURE INFORMATION: Exam: XR Left Hip with Pelvis when Performed Exam date and time: 07/18/2020 5:14 PM Age: 45 years old Clinical indication: Other: Pain, S/P fall; Patient HX: Fall yesterday TECHNIQUE: Imaging protocol: XR Left hip with pelvis when performed. Views: 2 or 3 views. COMPARISON: CT ABDOMEN PELVIS W 06/04/2020 8:48 AM FINDINGS: Bones/joints: There is a small enthesophyte of the left greater trochanter unchanged compared to prior CT scan. No fracture, dislocation, or other acute abnormality. Soft tissues: Unremarkable. IMPRESSION: No acute findings. HPI General Mode of arrival: ambulatory . Date/Time Provider Initiated Documentation: 07/18/20 16:34 . Limitations to Documentation: no limitations . Information obtained by: patient . History of Present Illness 45 year old F presents to the emergency department with the chief complaint of left knee pain, described as moderate, and it has been constant. Rest improves symptom(s), Movement worsens symptoms . Patient did receive the following treatments prior to arrival, none Related Data Home Medications Medication Instructions Recorded Confirmed bupropion HCl [Wellbutrin] 2 tab PO DAILY 11/13/15 07/18/20 multivitamin [Multi-Day] 1 tab PO DAILY 03/31/16 07/18/20 L norgest/e.estradiol-e.estrad 1 tab-cap PO DAILY #1 tab-cap 02/11/18 07/18/20 [Seasonique] acetaminophen [Mapap Extra 1,000 mg PO Q6H 5 Days #60 tab 05/28/18 02/09/19 Strength] amoxicillin-pot clavulanate 1 tab PO BID #14 tab 07/18/20 [Augmentin] ibuprofen [Ibuprofen IB] 400 mg PO PRN PRN 07/18/20 07/18/20 Previous Rx's Medication Instructions Recorded L norgest/e.estradiol-e.estrad 1 tab-cap PO DAILY #1 tab-cap 02/11/18 [Seasonique] acetaminophen [Mapap Extra 1,000 mg PO Q6H 5 Days #60 tab 05/28/18 Strength] amoxicillin-pot clavulanate 1 tab PO BID #14 tab 07/18/20 [Augmentin] Allergies Allergy/AdvReac Type Severity Reaction Status Date / Time Sulfa (Sulfonamide Allergy Severe Hives Verified 07/18/20 16:42 Antibiotics) General Stated Complaint: Laceration GEORGI: 4 Review of Systems All systems reviewed & are unremarkable except as noted in HPI and below Constitutional Constitutional: Denies chills, Denies fever(s) and Denies weakness Cardiovascular Cardiovascular: Denies chest pain and Denies dyspnea Respiratory Respiratory: Denies cough and Denies dyspnea Gastrointestinal Gastrointestinal: Denies abdominal pain, Denies nausea and Denies vomiting Musculoskeletal Musculoskeletal: Denies joint swelling Neurologic Neurologic: Denies weakness Psychiatric Psychiatric: Denies depression [facility] Surgical History section Cholecystectomy Reduction mammoplasty Social History Smoking/Tobacco Use Status: Current every day Tobacco: How many years used: 25 Alcohol Intake: current Alcohol Intake frequency: a few times a month Drug use: Rarely Substance use type: marijuana Counseling given: No Do you feel safe at home: Yes Do you feel safe in your relationship?: Yes Female Reproductive History Menstrual Age of Menarche: 11 Duration of menses: 3-5 days control method: pills History History 3 Para 2 Hx # Term Pregnancies 2 Multiple births Hx # Pregnancies Ectopic pregnancies AB induced 1 Hx Number of Living Children 2 AB spontaneous Exam Const General: no acute distress Orientation: alert HENMT Head: normal to inspection Ears: external ears normal General nose exam: external nose normal Mouth: moist mucous membranes Eyes General: appearance normal, both eyes and all related structures Neck Neck: normal visual inspection Resp Effort & Inspection: normal respiratory effort and able to speak in complete sentences Cardio Rate: regular rate Skin General skin exam: no rashes or lesions noted Neuro General: patient alert and patient oriented x3 Extrem General: full ROM and capillary refill normal Psych Mental Status: mental status grossly normal Course Vital Signs Vital signs: Vital Signs Temperature 36.1 C L 07/18/20 16:38 Pulse 101 H 07/18/20 16:38 Respiratory Rate 16 07/18/20 16:38 Blood Pressure 138/79 07/18/20 16:38 Pulse Oximetry 98 07/18/20 16:38 Temperature 36.1 C L 07/18/20 16:38 Temperature Source Skin 07/18/20 16:38 Pulse 101 H 07/18/20 16:38 Respiratory Rate 16 07/18/20 16:38 Blood Pressure 138/79 07/18/20 16:38 Blood Pressure Position Sitting 07/18/20 16:38 Pulse Oximetry 98 07/18/20 16:38 Oxygen Delivery Method Room Air 07/18/20 16:38 Oxygen Flow Rate 0 07/18/20 16:38 Pain Level 8 07/18/20 16:38 Comment has taken ibuprofen and tylenol 07/18/20 16:38
[2020-07-18] MEDS: Acetaminophen 500 MG TAB 1000 MG PO (17:00)
--- NOTE | 2020-07-18 17:00 | DI.RAD_ITS ---
EXAM: XR KNEE LT 3V AP,LAT,ROMEO CLINICAL HISTORY: pain s/p fall. TECHNIQUE: 2D digital imaging was performed. COMPARISON: No exams were available for comparison FINDINGS: BONES: No acute fracture is present. No bony destructive lesion is seen. JOINTS: The knee is normally aligned. No joint effusion is seen. SOFT TISSUE: Prepatellar soft tissue swelling. IMPRESSION: 1. No acute fracture or dislocation. 2. Prepatellar soft tissue swelling. DATA REPOSITORY: RADIATION DOSE DELIVERED:
--- NOTE | 2020-07-18 17:29 | DI.VRAD_ITS ---
PROCEDURE INFORMATION: Exam: XR Left Knee Exam date and time: 07/18/2020 5:15 PM Age: 45 years old Clinical indication: Other: Pain, S/P fall TECHNIQUE: Imaging protocol: XR Left knee. Views: 3 views. COMPARISON: No relevant prior studies available. FINDINGS: Bones/joints: There is mild medial femorotibial joint space narrowing consistent with mild osteoarthritis. No fracture, dislocation, or other acute bone or articular abnormality. Soft tissues: There is mild prepatellar soft tissue swelling. Minimal increased density in the suprapatellar space may represent a very small joint effusion. IMPRESSION: 1. No acute fracture. 2. Possible small joint effusion. 3. Mild medial femorotibial joint space narrowing suggesting early osteoarthritis. 4. Mild prepatellar edema. Dictated and Authenticated by: David Monique MD. Ordering:MUNA Dhaliwal MD
--- NOTE | 2020-07-18 17:33 | DI.VRAD_ITS ---
PROCEDURE INFORMATION: Exam: XR Left Hip with Pelvis when Performed Exam date and time: 07/18/2020 5:14 PM Age: 45 years old Clinical indication: Other: Pain, S/P fall; Patient HX: Fall yesterday TECHNIQUE: Imaging protocol: XR Left hip with pelvis when performed. Views: 2 or 3 views. COMPARISON: CT ABDOMEN PELVIS W 06/04/2020 8:48 AM FINDINGS: Bones/joints: There is a small enthesophyte of the left greater trochanter unchanged compared to prior CT scan. No fracture, dislocation, or other acute abnormality. Soft tissues: Unremarkable. IMPRESSION: No acute findings. Dictated and Authenticated by: David Monique MD. Ordering:MUNA Dhaliwal MD
== END 2020-07-18 18:00 | disposition home or self-care (01) ==
PROVIDERS: Emergency Provider Emergency Medicine; PCP Specialist/Technologist Athletic Trainer
DX: S80.02XA Contusion of left knee, initial encounter (principal); S70.02XA Contusion of left hip, initial encounter; W10.8XXA Fall (on) (from) other stairs and steps, initial encounter; L08.89 Other specified local infections of the skin and subcutaneous tissue
CPT/HCPCS: 73562; 99284; 73502

== ENCOUNTER 2021-01-23 15:23 | Outpatient (REF) | payer OTHER, SELFPAY ==
--- NOTE | 2021-01-23 14:00 | PAPFT_PTH ---
PATIENT: Rupali Hadley LOC: [facility] U#:[id number] AGE/SX: 45/F ROOM: RE01/23/[address]: SURAJ Samuel : 1975 BED: DIS: 01/23/2021 SPEC #: [id number] RECD: 01/23/21 17:30 STATUS: SIMEON REMalathi #: [id number] YAN: 01/23/21 14:[address]: Carolina Sharma DEPT: FORMERLY [facility], 1928–1983 Cytology RECD BY: Celine Nguyen ENTERED: 01/23/21 17:31 SP TYPE: PAPFT OT DR: See Tinajero Tissues: 1 - CX/ENDOCX FOR PAP SMEARS Procedures: PAP THIN PREP/[facility] Screening HPV DNA PROBE Comments: [id number]
[2021-01-24 16:25] LABS: Chlamydia Result Negative (Negative); GC Result Negative (Negative)
== END 2021-01-23 15:24 | disposition home or self-care (01) ==
LOC: LBN 15:23
PROVIDERS: PCP Specialist/Technologist Athletic Trainer; Visit Provider Nurse Practitioner Family
DX: Z11.3 Encounter for screening for infections with a predominantly sexual mode of transmission (principal); Z12.4 Encounter for screening for malignant neoplasm of cervix; Z11.51 Encounter for screening for human papillomavirus (HPV)
CPT/HCPCS: 87491; 87591; 88142; 87624

== ENCOUNTER → 2021-01-27 02:07 | Outpatient (CLI) | payer OTHER, SELFPAY ==
--- NOTE | 2021-01-27 12:50 | DI.MAMMO_ITS ---
EXAM: MG MAMMO SCREENING CLINICAL HISTORY: screening. TECHNIQUE: Bilateral full field digital CC and MLO mammographic images were obtained with 3D tomosyn thesis and utilizing computer aided detection (CAD). COMPARISON: Prior mammogram performed February 2018. Right breast ultrasound performed March 2018 was also reviewed. FINDINGS: There are no new significant radiograph findings in left breast. Small benign-appearing nodule upper outer quadrant left breast is unchanged. In the right breast the previously described nodule located 8-9 centimetres in from the nipple on the CC view is again noted. This is unchanged in size., measuring approximately 8 x 7 millimeters. The re are no new additional nodules in either breast. There is no significant architectural distortion nor skin thickening-retraction. IMPRESSION: 1. No radiographic evidence of malignancy in left breast. 2. Stable 8-9 millimeter right breast nodule, unchanged from February 2018 (3 years) and therefore most probably benign. BI-RADS Category 2 - Benign Findings Breast Density - Category B - Scattered areas of fibroglandular density Breast density Category C or D implies that the patient has dense breast tissue. Dense breast tissue can make it harder to find cancer on a mammogram. Dense breast tissue is also associated with an incr eased risk of breast cancer. This information about the result of the mammogram report was provided to the patient to raise their awareness. Use this report when you speak with the patient about their risks for breast cancer, which includes their family history. At that time, you may recommend additional screening tests (Ultrasoun d or MRI) as these tests may add significant information. A negative radiographic report should not delay biopsy if a dominant or clinically suspicious mass is present. Up to ten percent of cancers are not identified on mammography. A negative report may reinforce clinical impression. Adenosis and dense breasts may obscure an underlying neoplasm. False positive reports average 6 to 10%. Patient will receive a letter notifying them of these results.
== END ==
PROVIDERS: PCP Specialist/Technologist Athletic Trainer; Visit Provider Nurse Practitioner Family
DX: Z12.31 Encounter for screening mammogram for malignant neoplasm of breast (principal); R92.8 Other abnormal and inconclusive findings on diagnostic imaging of breast
CPT/HCPCS: 77063; 77067

== ENCOUNTER 2021-01-30 21:44 | Outpatient (REF) | payer OTHER, SELFPAY ==
[2021-01-30 19:19] LABS: ALT 96 U/L (14-59); AST 76 U/L (15-37); Albumin 3.3 g/dL (3.4-5.0); Alkaline Phosphatase 55 U/L (46-116); Anion Gap 7.2 mmol/L (3-11); BUN 9 mg/dL (7-18); Bilirubin, Total 0.3 mg/dL (0.2-1.0); CO2 28.8 mmol/L (21.0-32.0); CREATININE 0.7 mg/dL (0.55-1.02); Calcium 9.1 mg/dL (8.5-10.1); Calculated LDL 122 mg/dL (<100); Chloride 105 mmol/L (98-107); Cholesterol 222 mg/dL (<200); Glucose 179 mg/dL (74-106); HDL Cholesterol 41 mg/dL (40-60); Potassium 3.5 mmol/L (3.5-5.1); Sodium 141 mmol/L (136-145); Total Protein 6.8 g/dL (6.4-8.2); Triglyceride 299 mg/dL (<150)
[2021-02-03 11:35] LABS: Hepatitis C Ab w Rflx HCV PCR Negative (Negative)
[2021-02-03 11:36] LABS: Syphilis Serology (RPR) Negative (Negative)
[2021-02-03 12:26] LABS: HIV-1/2 Ag & Ab Screen Negative (Negative)
== END 2021-01-30 21:45 | disposition home or self-care (01) ==
LOC: NCHCN 21:44
PROVIDERS: PCP Specialist/Technologist Athletic Trainer; Visit Provider Nurse Practitioner Family
DX: Z00.00 Encounter for general adult medical examination without abnormal findings (principal); Z11.4 Encounter for screening for human immunodeficiency virus [HIV]; Z11.59 Encounter for screening for other viral diseases
CPT/HCPCS: 80053; 80061; 86803; 87389; 86592

== ENCOUNTER 2021-12-30 05:54 | Emergency (ER) | payer OTHER, SELFPAY ==
[2021-12-30 05:59] VITALS: BP 103/72; PULSE 88; RESP 18; TEMP 36.5; O2SAT 98
--- NOTE | 2021-12-30 06:00 | DI.RAD_ITS ---
Exam(s) XR WRIST RT COMPLETE EXAM: XR WRIST RT COMPLETE CLINICAL HISTORY: FOOSH, tender over snuff box and distal radius TECHNIQUE: COMPARISON: No exams were available for comparison FINDINGS: Four views were obtained. There is no evidence of acute fracture or dislocation. IMPRESSION: RADIATION DOSE DELIVERED: Total DLP
--- NOTE | 2021-12-30 06:12 | W.ED.GENAD ---
Discharge Plan Disposition Patient Disposition: HOME Condition: Good Discharge Details Clinical Impression: Right wrist sprain Primary Care Provider: See [facility] ED Provider: Sreekanth Montiel Home Meds and New Rx's Prescriptions: Continued norethindrone (contraceptive) 0.35 mg tablet 0.35 mg PO DAILY Qty: 84 3RF Rx Instructions: start day 1 of menstrual cycle bupropion HCl [Wellbutrin] 75 MG tablet 2 tab PO DAILY 0RF multivitamin [Multi-Day] 1 EACH tablet 1 tab PO DAILY 0RF acetaminophen [Mapap Extra Strength] 500 MG tablet 1,000 mg PO Q6H 5 Days Qty: 60 0RF ibuprofen [Ibuprofen IB] 200 mg Tablet 400 mg PO PRN PRN0RF Discharge Instructions Instructions: Wrist Sprain (ED) Additional Instructions: At this time the x-ray shows no evidence of fracture. I suspect you certainly strained/sprained the ligaments of your wrist. Please see you the thumb spica wrist brace for the next 1 to 2 weeks. Please follow-up closely with your primary care provider. If you still have continued pain in spite of this you may need repeat imaging of your wrist. Please take Tylenol, Aleve, and regular icing, to help with the pain. If you notice any worsening of your symptoms, or any new symptoms such as vomiting, diarrhea, fever, chills, shortness of breath, chest pain, numbness, weakness, or fainting , please return immediately to the emergency department for reevaluation. Please follow up with your primary care provider as soon as possible for reassessment and reevaluation. As always, it was a pleasure participating in your medical care today. Referrals: See [facility] [Primary Care Provider] - Medical Decision Making This is a 46-year-old female who is right-hand dominant who presents today for evaluation of right wrist pain. Patient states that yesterday she slipped on the ice and fell on an outstretched right wrist. She has pain below the thumb, extending up the right wrist toward the forearm. She admits to a mild pinprick-like sensation over the third fourth and fifth finger. No pain in the elbow. Pain is present with movement of the thumb. She has been taking Aleve but this has not been improving her symptoms. She has been wearing a home wrist splint without improvement. No other complaints at this time. No other trauma. Physical exam demonstrates tenderness over the anatomical snuffbox and distal radius. No other significant tenderness otherwise. Good sensation in all fingers, good two-point discrimination in all fingers. No diminished capillary refill. No other significant signs of trauma. No tenderness in the elbow whatsoever. X-ray demonstrates no evidence of acute fracture. Suspect sprain to the wrist, however because of her snuffbox tenderness we will give a thumb spica wrist splint. Will recommend close follow-up with her primary care provider for reassessment and repeat imaging if her symptoms persist. Recommend continued Aleve and Tylenol and ice. Discussed red flags for which to return. I have extensively reviewed the treatment plan and discharge instructions with the patient. I have addressed all patient concerns at this time. The patient was made aware of what symptoms to monitor for that would warrant a return to the emergency department. Discussed the plan with the patient, they demonstrate verbal understanding and agreement with our assessment and plan at this time. The documentation in this chart was dictated using [employer] dictation software. Please excuse any dictation errors. FINDINGS: Bones/joints: No acute fracture or dislocation Soft tissues: Normal. IMPRESSION: No acute findings. Thank you for allowing us to participate in the care of your patient. Dictated and Authenticated by: Joel Ryan MD 12/30/2021 6:38 AM Eastern Time ([place] & [place]) HPI General Date/Time Provider Initiated Documentation: 12/30/21 05:57. HPI Narrative: This is a 46-year-old female who is right-hand dominant who presents today for evaluation of right wrist pain. Patient states that yesterday she slipped on the ice and fell on an outstretched right wrist. She has pain below the thumb, extending up the right wrist toward the forearm. She admits to a mild pinprick-like sensation over the third fourth and fifth finger. No pain in the elbow. Pain is present with movement of the thumb. She has been taking Aleve but this has not been improving her symptoms. She has been wearing a home wrist splint without improvement. No other complaints at this time. No other trauma. Related Data Home Medications Medication Instructions Recorded Confirmed bupropion HCl 75 mg tablet 2 tab PO DAILY 11/13/15 07/18/20 (Wellbutrin) multivitamin (Multi-Day) 1 tab PO DAILY 03/31/16 07/18/20 acetaminophen 500 mg tablet (Mapap 1,000 mg PO Q6H 5 Days #60 tab 05/28/18 02/09/19 Extra Strength) ibuprofen 200 mg tablet (Ibuprofen 400 mg PO PRN PRN 07/18/20 07/18/20 IB) norethindrone (contraceptive) 0.35 0.35 mg PO DAILY #84 tab 01/23/21 01/23/21 mg tablet Previous Rx's Medication Instructions Recorded acetaminophen 500 mg tablet (Mapap 1,000 mg PO Q6H 5 Days #60 tab 05/28/18 Extra Strength) norethindrone (contraceptive) 0.35 0.35 mg PO DAILY #84 tab 01/23/21 mg tablet Allergies Allergy/AdvReac Type Severity Reaction Status Date / Time Sulfa (Sulfonamide Allergy Severe Hives Verified 01/23/21 13:10 Antibiotics) General Stated Complaint: Orthopedic GEORGI: 4 Review of Systems All systems reviewed & are unremarkable except as noted in HPI and below PFSH All Active Problems Right wrist sprain (Acute) Encounter for contraceptive management (Acute) Smoker (Acute) Bursitis of hip, right (Chronic) Sacroiliac dysfunction (Chronic) Surgical History section Cholecystectomy Reduction mammoplasty Family History Father Anxiety Arthritis Mother Hypertension Skin cancer History of TIAs Social History Smoking/Tobacco Use Status: Current every day Tobacco: How many years used: 25 Smoking risk assessment performed?: Yes Alcohol Intake: current Alcohol Intake frequency: a few times a month Drug use: Rarely Substance use type: marijuana Counseling given: No Do you feel safe at home: Yes Do you feel safe in your relationship?: Yes Female Reproductive History Menstrual Age of Menarche: 11 Duration of menses: 3-5 days control method: pills History History 3 Para 2 Hx # Term Pregnancies 2 Multiple births Hx # Pregnancies Ectopic pregnancies AB induced 1 Hx Number of Living Children 2 AB spontaneous Exam Narrative Exam Narrative: 1.Const: Well-nourished, Well-developed, appearing stated age 2.Eyes: PERRL, no conjunctival injection, and symmetrical lids. 3.ENT: Atraumatic external nose and ears. Moist MM. Neck: Symmetric, trachea midline, No thyromegaly. 4.CVS: +S1/S2, No murmurs or gallops. Peripheral pulses 2+ and equal in all extremities. Brisk capillary refill in all extremities. 5.RESP: Unlabored respiratory effort. Clear to auscultation bilaterally. No wheezes rales or rhonchi 6.GI: Soft, Nontender/Nondistended, No hepatosplenomegaly. No guarding or rebound. 7.MSK: Patient's right wrist demonstrates mild tenderness over the snuffbox, mild tenderness over the distal radius. Pain with extension of the thumb which appears to be notable, mild pain with all other movements of the thumb. Good strength in all directions for the thumb. Good irish moss bleacher strength. No tenderness over the midshaft radius or ulna. No tenderness over the olecranon or the elbow in general. Patient demonstrates good sensation in all fingers, including good two-point discrimination for the first second third fourth and fifth fingers. Brisk capillary refill. 8.Skin: Warm, Dry. No rashes or lesions. 9.Neuro: artist mannequin coloring II-XII grossly intact. Sensation grossly intact, no focal neurologic deficits. 10.Psych: (AAO) x3. Appropriate mood and affect Course Vital Signs Vital signs: Vital Signs Temperature 36.5 C 12/30/21 05:59 Pulse 88 12/30/21 05:59 Respiratory Rate 18 12/30/21 05:59 Blood Pressure 103/72 12/30/21 05:59 Pulse Oximetry 98 12/30/21 05:59 Temperature 36.5 C 12/30/21 05:59 Temperature Source Tympanic 12/30/21 05:59 Pulse 88 12/30/21 05:59 Respiratory Rate 18 12/30/21 05:59 Respiratory Effort 12/30/21 06:03 Blood Pressure 103/72 12/30/21 05:59 Blood Pressure Position Sitting 12/30/21 05:59 Pulse Oximetry 98 12/30/21 05:59 Pain Level 8 12/30/21 05:59
--- NOTE | 2021-12-30 06:39 | DI.VRAD_ITS ---
PROCEDURE INFORMATION: Exam: XR Right Wrist Exam date and time: 12/30/2021 6:05 AM Age: 46 years old Clinical indication: Injury or trauma; Fall; Blunt trauma (contusions or hematomas); Wrist; Right; Injury date: 12/30/21; Injury details: Fell on ice, foosh, tender over snuff box and distal radius; Patient HX: Tingling and numbness TECHNIQUE: Imaging protocol: XR Right wrist. Views: 3 or more views. COMPARISON: CR ARTHITIS SERIES-RACHANA HAND WRIST 09/16/2016 7:50 AM FINDINGS: Bones/joints: No acute fracture or dislocation Soft tissues: Normal. IMPRESSION: No acute findings. Dictated and Authenticated by: Joel Ryan MD. Ordering:ELSY Stack MD
== END 2021-12-30 07:08 | disposition home or self-care (01) ==
PROVIDERS: Emergency Provider Student in an Organized Health Care Education/Training Program; PCP Specialist/Technologist Athletic Trainer
DX: S63.591A Other specified sprain of right wrist, initial encounter (principal); W00.0XXA Fall on same level due to ice and snow, initial encounter
CPT/HCPCS: 29125; 99283; 73110

== ENCOUNTER 2022-02-19 15:29 | Outpatient (REF) | payer OTHER, SELFPAY ==
[2022-02-21 13:46] LABS: Chlamydia Result Negative (Negative); GC Result Negative (Negative)
== END 2022-02-19 15:30 | disposition home or self-care (01) ==
LOC: LBN 15:29
PROVIDERS: PCP Specialist/Technologist Athletic Trainer; Visit Provider Nurse Practitioner Family
DX: Z11.3 Encounter for screening for infections with a predominantly sexual mode of transmission (principal)
CPT/HCPCS: 87491; 87591

== ENCOUNTER 2022-02-24 02:25 | Outpatient (CLI) | payer OTHER, SELFPAY ==
[2022-02-25 10:38] LABS: Hepatitis B Surface Ag Negative (Negative)
[2022-02-25 11:10] LABS: HIV-1/2 Ag & Ab Screen Negative (Negative)
[2022-02-25 11:15] LABS: Hepatitis C Ab w Rflx HCV PCR Negative (Negative)
[2022-02-26 16:53] LABS: Syphilis IgG w/Reflex Nonreactive (Nonreactive)
== END 2022-02-24 02:26 | disposition home or self-care (01) ==
LOC: LBO 02:25
PROVIDERS: PCP Nurse Practitioner Family; Visit Provider Nurse Practitioner Family
DX: Z11.3 Encounter for screening for infections with a predominantly sexual mode of transmission (principal); Z11.4 Encounter for screening for human immunodeficiency virus [HIV]; Z11.59 Encounter for screening for other viral diseases
CPT/HCPCS: 36415; 86803; 87340; 87389; 86780

== ENCOUNTER 2022-09-02 05:24 | Emergency (ER) | payer OTHER, SELFPAY ==
[2022-09-02 05:27] VITALS: BP 147/80; PULSE 89; RESP 18; TEMP 36.4; O2SAT 97
--- NOTE | 2022-09-02 05:42 | ED.GENADUL_ITS ---
Discharge Plan Disposition Patient Disposition: HOME Condition: Improving Discharge Details Chief Complaint: Sorethroat Clinical Impression: Adenopathy, cervical, Pain in throat Primary Care Provider: Ledy Crain ED Provider: Mega Hyde Home Meds and New Rx's Prescriptions: No Action norethindrone (contraceptive) 0.35 mg tablet 0.35 mg PO DAILY Qty: 84 3RF bupropion HCl [Wellbutrin] 75 MG tablet 2 tab PO DAILY multivitamin [Multi-Day] 1 EACH tablet 1 tab PO DAILY acetaminophen [Mapap Extra Strength] 500 MG tablet 1,000 mg PO Q6H 5 Days Qty: 60 0RF ibuprofen [Ibuprofen IB] 200 mg Tablet 400 mg PO PRN PRN Discharge Instructions Instructions: Pharyngitis (ED), Lymphadenopathy (ED) Additional Instructions: Please follow-up with your primary care physician. Please return to the em ergency department for any worsening symptoms. Medical Decision Making 47-year-old female presents with neck discomfort and throat discomfort over the past day. Pain with swallowing. Soft submental and submandibular spaces on examination, patient does have cervical lymphadenopathy. Patient is afebrile nontoxic tolerating secretions midline uvula no exudate on tonsils. Likely cervical lymphadenitis related to viral syndrome versus strep pharyngitis versus viral pharyngitis no evidence of Pool's angina or deep space infection of head or neck at this time. Will trial dexamethasone, will swab for strep, disposition pending reassessment 6: 22 patient feeling relief after dexamethasone. Given home care instructions and strict return precautions for worsening symptoms. HPI General Date/Time Provider Initiated Documentation: 09/02/22 05:31 . HPI Narrative: 47-year-old female presents with less than 1 day of sore throat located predominantly in the glands of her neck, painful swallowing however normal speech tolerating secretions, denies fevers chills nausea or vomiting or trouble breathing. Related Data Home Medications Medication Instructions Recorded Confirmed bupropion HCl 75 mg tablet 2 tab PO DAILY 11/13/15 07/18/20 (Wellbutrin) multivitamin (Multi-Day tablet) 1 tab PO DAILY 03/31/16 09/02/22 acetaminophen 500 mg tablet (Mapap 1,000 mg PO Q6H 5 days #60 tabs 05/28/18 09/02/22 Extra Strength) ibuprofen 200 mg tablet (Ibuprofen 400 mg PO PRN PRN 07/18/20 09/02/22 IB) norethindrone (contraceptive) 0.35 0.35 mg PO DAILY #84 tabs 06/30/22 09/02/22 mg tablet Previous Rx's Medication Instructions Recorded acetaminophen 500 mg tablet (Mapap 1,000 mg PO Q6H 5 days #60 tabs 05/28/18 Extra Strength) norethindrone (contraceptive) 0.35 0.35 mg PO DAILY #84 tabs 06/30/22 mg tablet Allergies Allergy/AdvReac Type Severity Reaction Status Date / Time Sulfa (Sulfonamide Allergy Severe Hives Verified 09/02/22 05:32 Antibiotics) General Stated Complaint: Sorethroat GEORGI: 4 Review of Systems Narrative: Review of Systems Constitutional: negative Eyes: negative ENT: Throat pain Cardiovascular: negative Respiratory: negative Gastrointestinal: negative : negative Musculoskeletal: negative Skin: negative Neurologic: negative Psych: negative PFSH All Active Problems (Updated 09/02/22 @ 06:24 by Mega Hyde MD) Adenopathy, cervical (Acute) Pain in throat (Acute) Encounter for contraceptive management (Acute) Smoker (Acute) Bursitis of hip, right (Chronic) Sacroiliac dysfunction (Chronic) Surgical History section Cholecystectomy Reduction mammoplasty Family History Father Anxiety Arthritis Mother Hypertension Skin cancer History of TIAs Social History Smoking/Tobacco Use Status: Current every day Tobacco: How many years used: 25 Smoking risk assessment performed?: Yes Alcohol Intake: current Alcohol Intake frequency: a few times a month Drug use: Rarely Substance use type: marijuana Counseling given: No Do you feel safe at home: Yes Do you feel safe in your relationship?: Yes Female Reproductive History Menstrual Age of Menarche: 11 Duration of menses: 3-5 days control method: pills History History 3 Para 2 Hx # Term Pregnancies 2 Multiple births Hx # Pregnancies Ectopic pregnancies AB induced 1 Hx Number of Living Children 2 AB spontaneous Exam Narrative Exam Narrative: Physical Examination General: alert, awake, cooperative, resting comfortably, no acute distress HEENT: normocephalic, atraumatic; PERRL, EOM intact, conjunctiva normal; no nasal discharge; moist mucous membranes, oral and pharyngeal mucosa normal, tolerating secretions; midline uvula, no pharyngeal exudate, does have some cervical lymphadenopathy, soft submental and submandibular space Neck: supple, trachea midline; full ROM Chest: normal to inspection Respiratory: normal respiratory effort, speaking in full sentences, clear to auscultation, no wheezing, rales or rhonchi Cardiac: regular rate, regular rhythm, S1S2 intact, no murmurs rubs or gallops GI: abdomen soft, non-tender, non-distended; no palpable mass or hepatosplenomegaly Skin: no lesions, rashes or trauma appreciated Neuro: AAOx3, normal speech, moving all extremities Psych: Appropriate mood and affect Course Vital Signs Vital signs: Vital Signs Temperature 36.4 C L 09/02/22 05:27 Pulse 89 09/02/22 05:27 Respiratory Rate 18 09/02/22 05:27 Blood Pressure 147/80 H 09/02/22 05:27 Pulse Oximetry 97 09/02/22 05:27 Temperature 36.4 C L 09/02/22 05:27 Temperature Source Temporal Artery Scan 09/02/22 05:27 Pulse 89 09/02/22 05:27 Respiratory Rate 18 09/02/22 05:27 Respiratory Effort 09/02/22 05:30 Blood Pressure 147/80 H 09/02/22 05:27 Blood Pressure Position Sitting 09/02/22 05:27 Pulse Oximetry 97 09/02/22 05:27 Pain Level 6 09/02/22 05:27
[2022-09-02] MEDS: Dexamethasone 10 MG/ML VIAL IM (05:48)
== END 2022-09-02 06:26 | disposition home or self-care (01) ==
PROVIDERS: Emergency Provider Emergency Medicine; PCP Nurse Practitioner Family
DX: R59.0 Localized enlarged lymph nodes (principal); R07.0 Pain in throat
CPT/HCPCS: 87880; 96372; 99284; J1100

== ENCOUNTER 2023-03-12 15:53 | Outpatient (REF) | payer OTHER, SELFPAY ==
[2023-03-14 12:34] LABS: Chlamydia Result Negative (Negative); GC Result Negative (Negative)
== END 2023-03-12 15:54 | disposition home or self-care (01) ==
LOC: LBN 15:53
PROVIDERS: PCP Nurse Practitioner Family; Visit Provider Obstetrics & Gynecology
DX: Z11.3 Encounter for screening for infections with a predominantly sexual mode of transmission (principal)
CPT/HCPCS: 87491; 87591

== ENCOUNTER 2023-03-26 02:23 | Outpatient (CLI) | payer OTHER, SELFPAY ==
[2023-03-26 07:38] LABS: Hemoglobin A1C 5.6 % (<5.7)
[2023-03-26 08:50] LABS: ALT 21 U/L (14-59); AST 14 U/L (15-37); Albumin 3.7 g/dL (3.4-5.0); Alkaline Phosphatase 78 U/L (46-116); Anion Gap 10.8 mmol/L (3-11); BUN 9 mg/dL (7-18); Bilirubin, Total 0.2 mg/dL (0.2-1.0); CO2 25.2 mmol/L (21.0-32.0); CREATININE 0.7 mg/dL (0.55-1.02); Calcium 8.6 mg/dL (8.5-10.1); Calculated LDL 175 mg/dL (<100); Chloride 106 mmol/L (98-107); Cholesterol 248 mg/dL (<200); Estimated GFR 106.62 (mL/min/1.73m2); Glucose 122 mg/dL (74-106); HDL Cholesterol 43 mg/dL (40-60); Potassium 3.9 mmol/L (3.5-5.1); Sodium 142 mmol/L (136-145); Total Protein 7.8 g/dL (6.4-8.2); Triglyceride 150 mg/dL (<150)
[2023-03-28 12:59] LABS: HIV-1/2 Ag & Ab Screen Negative (Negative)
[2023-03-29 11:02] LABS: Hepatitis C Ab w Rflx HCV PCR Negative (Negative)
[2023-03-29 12:45] LABS: Syphilis Serology (RPR) Negative (Negative)
== END 2023-03-26 02:24 | disposition home or self-care (01) ==
LOC: LBO 02:23
PROVIDERS: PCP Nurse Practitioner Family; Visit Provider Nurse Practitioner Family
DX: Z00.00 Encounter for general adult medical examination without abnormal findings (principal); R73.03 Prediabetes; Z11.3 Encounter for screening for infections with a predominantly sexual mode of transmission; Z11.59 Encounter for screening for other viral diseases; Z11.4 Encounter for screening for human immunodeficiency virus [HIV]; Z13.220 Encounter for screening for lipoid disorders
CPT/HCPCS: 36415; 80053; 80061; 86803; 87389; 83036; 86592

== ENCOUNTER 2024-08-10 13:38 | Outpatient (REF) | payer OTHER, SELFPAY ==
[2024-08-11 12:13] LABS: Chlamydia Result Negative (Negative); GC Result Negative (Negative)
== END 2024-08-10 13:39 | disposition home or self-care (01) ==
LOC: LBN 13:38
PROVIDERS: PCP Nurse Practitioner Family; Visit Provider Obstetrics & Gynecology
DX: Z11.3 Encounter for screening for infections with a predominantly sexual mode of transmission (principal); Z12.39 Encounter for other screening for malignant neoplasm of breast; Z01.419 Encounter for gynecological examination (general) (routine) without abnormal findings
CPT/HCPCS: 87491; 87591

== ENCOUNTER 2024-08-10 14:18 | Outpatient (CLI) | payer OTHER, SELFPAY ==
[2024-08-10 23:08] LABS: HIV-1/2 Ag & Ab Screen Negative (Negative)
[2024-08-11 08:54] LABS: Hepatitis A Antibody IgM Equivocal (Negative); Hepatitis B Core Antibody Negative (Negative); Hepatitis B surface Ag Negative (Negative); Hepatitis C Ab w Rflx HCV PCR Negative (Negative)
[2024-08-11 12:03] LABS: Syphilis Serology (RPR) Negative (Negative)
== END 2024-08-10 14:19 | disposition home or self-care (01) ==
LOC: LBO 14:26
PROVIDERS: PCP Nurse Practitioner Family; Visit Provider Obstetrics & Gynecology
DX: Z11.3 Encounter for screening for infections with a predominantly sexual mode of transmission (principal); Z12.39 Encounter for other screening for malignant neoplasm of breast; Z01.419 Encounter for gynecological examination (general) (routine) without abnormal findings
CPT/HCPCS: 36415; 86704; 86709; 86803; 87340; 87389; 86592

== ENCOUNTER 2024-08-24 08:10 | Emergency (ER) | payer OTHER, SELFPAY ==
[2024-08-24] VITALS (14 sets, daily range): BP systolic 175–215; BP diastolic 81–121; PULSE 63–87; RESP 12–27; TEMP 36.4; O2SAT 96–99
--- NOTE | 2024-08-24 08:00 | RT.EKG_ITS ---
APPROVED REPORT Exam: Resting ECG Reason for Exam: chest pain Patient Location: E HR:79 bpm ECG Measurements Heart Rate 79 AXIS TN 126 P 60 QRSd 79 QRS 58 QT 371 T 43 QTc 426 Conclusion Sinus rhythm...normal P axis, V-rate 60- 99 Narrow complex normal sinus rhythm at a rate of 79. Normal axis. Intervals within normal limits. P oor R wave progression. No T wave inversions. No ST segment abnormalities. No acute injury pattern . No prior for comparison.
--- NOTE | 2024-08-24 08:43 | ED.GENADUL_ITS ---
Discharge Plan Disposition Patient Disposition: Home Condition: Stable Discharge Details Clinical Impression: Chest pain, Elevated blood pressure reading Primary Care Provider: Ledy Crain ED Provider: Celine Styles Home Meds and New Rx's Prescriptions: New lisinopril 10 mg tablet 10 mg PO DAILY Qty: 30 0RF Continued norethindrone (contraceptive) 0.35 mg tablet See Rx Instructions .ROUTE .COMPLEX Qty: 84 3RF Dose Instruction: TAKE 1 TABLET BY MOUTH DAILY Rx Instructions: TAKE 1 TABLET BY MOUTH DAILY multivitamin [Multi-Day] 1 EACH tablet 1 tab PO DAILY ibuprofen [Ibuprofen IB] 200 mg Tablet 400 mg PO PRN PRN Discharge Instructions Instructions: Chest Pain (DC), High Blood Pressure ED Additional Instructions: Work on smoking cessation, this is very important Start taking the lisinopril, speak with your doctor before filling the prescription, you received a dose of 10 mg of lisinopril today Your cardiac evaluation here is reassuring, however I do recommend a stress test at the discretion of your doctor in the outpatient setting Please return should you have new or worsening complaints including persistent chest pain, shortness of breath, or should new concerns arise Referrals: Ledy Crain [Primary Care Provider] - 1 day HPI General Date/Time Provider Initiated Documentation: 08/24/24 08:11 . HPI Narrative: This 49-year-old female presents with chest pain that started at 530 this morning when she was seated. She states it has been persistent and since that time. Denies exacerbation with walking or movement. Denies any known trauma. Denies pleuritic component. States she was sick approximately 1 week ago. Denies recent flights, surgeries, long drives or personal history of coagulopathy. Smokes tobacco and does take progesterone daily. Denies any chance of . Related Data Home Medications ?Medication ?Instructions ?Recorded ?Confirmed multivitamin (Multi-Day tablet) 1 tab PO DAILY 03/31/16 08/24/24 ibuprofen 200 mg tablet (Ibuprofen 400 mg PO PRN PRN 07/18/20 08/24/24 IB) norethindrone (contraceptive) 0.35 See Rx Instructions .Route 08/10/24 08/24/24 mg tablet .COMPLEX #84 tabs lisinopril 10 mg tablet 10 mg PO DAILY #30 tabs 08/24/24 Previous Rx's ?Medication ?Instructions ?Recorded norethindrone (contraceptive) 0.35 See Rx Instructions .Route 08/10/24 mg tablet .COMPLEX #84 tabs lisinopril 10 mg tablet 10 mg PO DAILY #30 tabs 08/24/24 Allergies Allergy/AdvReac Type Severity Reaction Status Date / Time Sulfa (Sulfonamide Allergy Severe Hives Verified 08/24/24 08:20 Antibiotics) General Stated Complaint: Chest Pain GEORGI: 3 Exam Narrative Exam Narrative: 49-year-old female alert, oriented, no acute distress, lungs clear to auscultation, cardiac rate rhythm regular, no abdominal tenderness, no reproducible chest wall pain no peripheral edema, distal pulses intact, no calf swelling or tenderness, no murmurs or rubs Course Vital Signs Vital signs: Vital Signs Temperature 36.4 C 08/24/24 08:13 Pulse 87 08/24/24 08:13 Respiratory Rate 18 08/24/24 08:13 Blood Pressure 203/93 H 08/24/24 08:13 Pulse Oximetry 99 08/24/24 08:13 Temperature 36.4 C 08/24/24 08:13 Temperature Source Oral 08/24/24 08:13 Pulse 87 08/24/24 08:13 Respiratory Rate 18 08/24/24 08:13 Blood Pressure 203/93 H 08/24/24 08:13 Pulse Oximetry 99 08/24/24 08:13 Oxygen Delivery Method Room Air 08/24/24 08:13 Oxygen Flow Rate 0 08/24/24 08:13 Medical Decision Making 49-year-old female presenting with chest pain intermittently for the past several days, this episode lasting approximately 3 hours this morning nonexertional. EKG does not show evidence of acute ischemia.. 2 troponins are negative with less than 50% change. Alert and oriented, no acute distress, given a single dose of nitro with elevation of blood pressure 200/100 initially. Patient symptomatically improved at time of reassessment, blood pressure 170/90. Asymptomatic 2 negative troponins negative D-dimer, chest x-ray that does not show evidence of acute abnormality. Started on lisinopril 10 mg after reviewing medical comorbidities. Patient encouraged smoking cessation and to talk to her doctor about whether or not norethindrone is appropriate to be removed from her list. Patient has an appointment at 230 with her PCP, she is encouraged to keep this appointment and discuss appropriate blood pressure management and outpatient stress test. Return precautions reviewed and patient expressed understanding discharged home in stable condition pain-free Quality:SDOH Health Related Social Needs: No Data to Display PFSH All Active Problems (Updated 08/24/24 @ 10:14 by CARLOS Landa) Elevated blood pressure reading (Acute) Chest pain (Acute) Screen for STD (sexually transmitted disease) (Acute) Well woman exam (no gynecological exam) (Acute) Screen for STD (sexually transmitted disease) (Acute) Encounter for contraceptive management (Acute) Smoker (Acute) Bursitis of hip, right (Chronic) Sacroiliac dysfunction (Chronic) Surgical History Cholecystectomy section Reduction mammoplasty Family History Father Anxiety Arthritis Mother Hypertension Skin cancer History of TIAs Social History Smoking/Tobacco Use Status: Current every day Tobacco: How many years used: 25 Quit status: has quit before Smoking risk assessment performed?: Yes Alcohol Intake: current Alcohol Intake frequency: a few times a month Drug use: Occasionally Substance use type: marijuana Counseling given: No Housing: apartment Do you feel safe at home: Yes Do you feel safe in your relationship?: Yes Female Reproductive History Menstrual Age of Menarche: 11 Duration of menses: 3-5 days control method: pills History History 3 Para 2 Hx # Term Pregnancies 2 Multiple births Hx # Pregnancies Ectopic pregnancies AB induced 1 Hx Number of Living Children 2 AB spontaneous
[2024-08-24 08:47] LABS: Abs Immature Grans 0.03 10^3/uL (0.0-0.06); Absolute Basophil Count 0.03 10^3/uL (0.0-0.2); Absolute Eosinophil Count 0.12 10^3/uL (0.0-0.7); Absolute Lymphocyte Count 2.51 10^3/uL (1.2-3.4); Absolute Monocyte Count 0.42 10^3/uL (0.1-0.8); Absolute Neutrophil Count 3.63 10^3/uL (1.2-6.7); Basophils % 0.4 %; Eosinophils % 1.8 %; HCT 43.7 % (36.0-46.0); HGB 14.5 g/dL (11.2-15.7); Immature Grans % 0.4 %; Lymphocytes % 37.2 %; MCH 28.8 pg (27.0-33.0); MCHC 33.2 % (32.0-36.0); MCV 87 fL (80-95); MPV 9.3 fL (8.0-11.0); Monocytes % 6.2 %; Platelet Count 305 10^3/uL (130-400); RBC 5.04 10^6/uL (3.93-5.22); RDW 13.6 % (11.7-14.6); RDW-SD 43.4 fL; WBC 6.74 10^3/uL (4.4-10.8)
[2024-08-24] MEDS: nitroGLYcerin 0.4 MG TAB SL (08:47)
[2024-08-24] MEDS: Aspirin 81 MG CHEW 324 MG CH (08:47)
[2024-08-24 09:06] LABS: ALT 18 U/L (14-59); AST 15 U/L (15-37); Albumin 3.6 g/dL (3.4-5.0); Alkaline Phosphatase 74 U/L (46-116); Anion Gap 10.6 mmol/L (3-11); BUN 6 mg/dL (7-18); Bilirubin, Total 0.37 mg/dL (0.2-1.0); CO2 23.4 mmol/L (21.0-32.0); CREATININE 0.7 mg/dL (0.55-1.02); Calcium 9.3 mg/dL (8.5-10.1); Chloride 107 mmol/L (98-107); Glucose 103 mg/dL (74-106); Lipase 34 U/L (16-77); Sodium 141 mmol/L (136-145); Total Protein 7.6 g/dL (6.4-8.2); Troponin I < 4 ng/L (<or=51)
--- NOTE | 2024-08-24 09:16 | DI.RAD_ITS ---
Exam(s) XR PORTABLE CHEST AP EXAM: XR PORTABLE CHEST AP CLINICAL HISTORY: chest tightness TECHNIQUE: 2D digital imaging was performed of the chest. One image was obtained. An AP view was ob tained. COMPARISON: No exams were available for comparison FINDINGS: MEDIASTINUM: Normal. HEART: Normal. PULMONARY VASCULATURE: Normal. LUNGS: Clear. PLEURAL SPACE: No pleural effusion or pneumothorax. BONE:Within normal limits for the patient's age. OTHER FINDINGS:Normal. IMPRESSION: No acute pulmonary findings. DATA REPOSITORY: RADIATION DOSE DELIVERED:
[2024-08-24 09:22] LABS: D-Dimer 281 ng/mlFEU (<500)
[2024-08-24] MEDS: Lisinopril 10 MG TAB PO (09:42)
[2024-08-24 09:58] LABS: Troponin I < 4 ng/L (<or=51)
== END 2024-08-24 10:32 | disposition home or self-care (01) ==
PROVIDERS: Emergency Provider Physician Assistant; PCP Nurse Practitioner Family
DX: R07.89 Other chest pain (principal); R03.0 Elevated blood-pressure reading, without diagnosis of hypertension; F17.200 Nicotine dependence, unspecified, uncomplicated
CPT/HCPCS: 36415; 80053; 81025; 83690; 93005; 99285; 71045; 84484; 85025; 85379; 93010; 99284

== ENCOUNTER 2024-09-06 01:36 | Outpatient (CLI) | payer OTHER, SELFPAY ==
[2024-09-06 08:02] LABS: Hemoglobin A1C 5.7 % (<5.7)
[2024-09-06 08:37] LABS: ALT 16 U/L (14-59); AST 10 U/L (15-37); Albumin 3.6 g/dL (3.4-5.0); Alkaline Phosphatase 73 U/L (46-116); Anion Gap 9.9 mmol/L (3-11); BUN 9 mg/dL (7-18); Bilirubin, Total 0.44 mg/dL (0.2-1.0); CO2 26.1 mmol/L (21.0-32.0); CREATININE 0.8 mg/dL (0.55-1.02); Calculated LDL 153 mg/dL (<100); Chloride 108 mmol/L (98-107); Cholesterol 227 mg/dL (<200); Estimated GFR 89.71 (mL/min/1.73m2); Glucose 105 mg/dL (74-106); HDL Cholesterol 51 mg/dL (40-60); Sodium 144 mmol/L (136-145); Total Protein 7.3 g/dL (6.4-8.2); Triglyceride 119 mg/dL (<150); Vitamin D 25 Total 22.3 ng/mL (30-100)
[2024-09-07 16:21] LABS: Hep A Total Ab w Rflx IgM Positive (Negative)
[2024-09-08 08:30] LABS: Hep A Antibody IgM Equivocal (Negative)
== END 2024-09-06 01:37 | disposition home or self-care (01) ==
LOC: LBO 01:36
PROVIDERS: PCP Nurse Practitioner Family; Visit Provider Nurse Practitioner Family
DX: Z00.00 Encounter for general adult medical examination without abnormal findings (principal); E78.5 Hyperlipidemia, unspecified; R73.03 Prediabetes; R03.0 Elevated blood-pressure reading, without diagnosis of hypertension
CPT/HCPCS: 36415; 80053; 80061; 82306; 86709; 83036

== ENCOUNTER 2024-09-18 00:53 | Outpatient (CLI) | payer OTHER, SELFPAY ==
--- NOTE | 2024-09-18 | ETT_ITS ---
APPROVED REPORT Exam: Exercise Treadmill Patient Location: Out-Patient Room/Bed: Stress Nurse: Seng Hagen RN and Nicko Hannon RN Ordering Provider:FABI CHUSELINAJOOALEJANDRINA, Contact Number: [phone] BMI: 32.61 Baseline Rhythm: Sinus Rhythm. Indications: Chest Pain. Medical History Medical History: Anxiety; Depression; GERD; Hyperlipidemia; Hypertension; Pre-diabetes; Current Smoke r. Cardiac Medications: Bupropion; Lisinopril. Allergies: Ciprofloxacin; Hydroxyzine; Sulfadiazine. Cardiac Risk Factors: Family Hx; Hyperlipidemia; Hypertension; Pre-diabetes; Current Smoker. Previous Cardiac Procedures: None. Pretest Chest Pain Characteristics: None. Exercise History: Indeterminate. Physical Disabilities: None. Lung Sounds: Diminished in the bilateral posterior bases; clear bilaterally throughout otherwise, ant erior and posterior. Heart Sounds: S1 and S2 auscultated. Stress Test Details Test: Exercise stress testing was performed using a Yordy protocol. Rest Stress HR Resting HR Supine: 69 bpm Max Heart Rate (APMHR): 170 bpm Resting HR Standin bpm Target HR (85% APMHR): 145 bpm Max HR Achieved: 154 bpm % of APMHR: 91 Recovery HR: 84 bpm HR response to stress: Normal HR response to stress. BP Resting BP Supine: 128/82 mmHg Resting BP Standin/88 mmHg Max BP: 170/72 mmHg Recovery BP: 122/72 mmHg BP response to stress: Normal blood pressure response to stress. ECG Resting ECG: Sinus Rhythm. Ectopy: None. Stress ECG: Sinus Tachycardia. ST Change: No significant ST segment changes noted. Arrhythmia: None. Recovery ECG: Sinus Rhythm. Recovery ST Change: No significant ST segment changes noted. Recovery Arrhythmia: One PVC. Clinical Reason for Termination: Target HR Achieved; Fatigue. Stress Symptoms: General Fatigue. Exercise duration: 06 min23 sec Highest Stage Reached: Stage 3: 3.4 mph at 14% grade. Exercise capacity: 7.62 METs Angina Score: None Bishop Treadmill Score: 5.5 Rate Pressure Product: 18252 Stress ECG Conclusion 1. Resting electrocardiogram is normal 2. Patient exercised on the Yordy protocol completed workload of 7.62 METS 3. Normal heart rate and blood pressure response to exercise. The patient achieved 91% of maximal pr edicted heart rate for age 4. There was no electrocardiographic evidence of myocardial ischemia 5. There were no significant dysrhythmias Bishop Treadmill Score is 5.5 which is Low risk. Stress Test Summary STAGE Time (mins) Speed (mph) Grade (%) HR BP SpO2 SYMPTOMS METS Supine 69 128/82 97 Standing 81 112/88 98 1 3 1.7 10 115 4.5 2 6 2.5 12 143 95 Pt. complaining of generalized fatigue, but is willing to keep going to re ach target HR. 7 3 9 3.4 14 154 Pt. complaining of significant generalized fatigue. 10 1 min recovery 136 170/72 97 Pt. complaining of signifcant generalized fatigue. 3 min recovery 86 138/68 97 Pt. states that the generalized fatigue is resolving. 6 min recovery 84 122/72 97 Pt. states that the generalized fatigue has resolved; all sympt oms have returned to baseline. Pt. was conversing pleasantly with nursing staff upon leaving the Stress Lab. Pt. left ambulatory in no apparent distress.
--- NOTE | 2024-09-18 | DI.CTLCSR_ITS ---
Exam(s) CT CHEST LUNG CANCER SCREEN EXAM: CT CHEST LUNG CANCER SCREEN CLINICAL HISTORY: Nicotine dependence, F17.200 TECHNIQUE: Imaging Protocol: Axial computed tomography images with coronal and sagittal reformatted images were created and reviewed. Low dose screening protocol. COMPARISON: CT CT CHEST/ABD/PEL W from 12/29/2018 CR XR PORTABLE CHEST AP from 08/24/2024 FINDINGS: Tracheobronchial tree: No bronchiectasis or mucus plugging. Mediastinum and N[place]is: No dominant adenopathy or fluid collection. Pulmonary parenchyma: No consolidation or dominant measurable mass. No visible emphysematous changes. No significant interstitial changes. Lung Nodules: 2 millimeter nodule right upper lobe. Pleura: No effusion. No pneumothorax. Heart: The heart is not dilated. No coronary artery calcifications are seen. No pericardial effusion. Aorta: Thoracic aorta non-dilated. Upper abdomen: Bilateral low-density adrenal nodules again noted consistent with adenomas. Bones: Stable sclerotic focus in the T10 vertebral body, consistent with bone island. Soft Tissues: Unremarkable. IMPRESSION: No suspicious pulmonary nodules. Lung RADS Cat 2 - Benign Appearance / Behavior: Nodules with a very low likelihood of becoming a clin ically active cancer due to size or lack of growth Lung-RADS 1.0 CATEGORIES: Category 0 - Prior chest CT exam(s) being located for comparison. Category 1 - Annual screening in 12 months. No nodules or definitely benign nodules. Category 2 - Annual screening in 12 months. Benign appearance. Nodules with low likelihood of becomin g active cancer. Category 3 - 6-month follow-up. Probably benign. Short-term follow-up suggested. Nodules with low lik elihood of becoming active cancer. Category 4A - 3-month follow-up and CT/PET if >8 mm in size. Suspicious finding. Findings which requi re additional testing. Category 4B - Findings which require additional testing and tissue sampling. Category 4X - Category 3 or 4 nodules with additional features or imaging findings that increases the suspicion of malignancy. Modifier S- Potentially clinically significant findings (non lung cancer) RADIATION DOSE DELIVERED: !Error Total DLP DATA REPOSITORY: All CT scans at this facility are submitted to the National Radiology Data Registry (NRDR) Dose Index Registry (DIR) with the [employer] (ACR). RADIATION OPTIMIZATION: All CT scans at this facility use at least one of these dose optimization te chniques: automated exposure control; mA and/or kV adjustment per patient size (includes targeted exa ms where dose is matched to clinical indication); or iterative reconstruction.
== END 2024-09-18 01:13 ==
LOC: DI 00:53
PROVIDERS: PCP Nurse Practitioner Family; Visit Provider Nurse Practitioner Family
DX: F17.200 Nicotine dependence, unspecified, uncomplicated (principal); Z12.2 Encounter for screening for malignant neoplasm of respiratory organs
CPT/HCPCS: 71271; 93016; 93018; 93017

== ENCOUNTER 2024-09-18 03:21 | Outpatient (CLI) | payer OTHER, SELFPAY ==
[2024-09-22 22:50] LABS: Pyridoxal 5-Phosphate (PLP), P 4 mcg/L (5-50)
== END 2024-09-18 03:22 | disposition home or self-care (01) ==
LOC: LBO 03:21
PROVIDERS: PCP Nurse Practitioner Family; Visit Provider Nurse Practitioner Family
DX: R79.9 Abnormal finding of blood chemistry, unspecified (principal)
CPT/HCPCS: 36415; 84207

== ENCOUNTER 2024-10-10 16:39 | Outpatient (REF) | payer OTHER, SELFPAY ==
[2024-10-10 20:09] LABS: Anion Gap 12.4 mmol/L (3-11); BUN 10 mg/dL (7-18); CO2 26.6 mmol/L (21.0-32.0); CREATININE 0.9 mg/dL (0.55-1.02); Calcium 9.8 mg/dL (8.5-10.1); Chloride 101 mmol/L (98-107); Estimated GFR 77.88 (mL/min/1.73m2); Glucose 127 mg/dL (74-106); Potassium 3.7 mmol/L (3.5-5.1); Sodium 140 mmol/L (136-145)
== END 2024-10-10 16:40 | disposition home or self-care (01) ==
LOC: NCHCN 16:39
PROVIDERS: PCP Nurse Practitioner Family; Visit Provider Nurse Practitioner Family
DX: I10 Essential (primary) hypertension (principal)
CPT/HCPCS: 80048

== ENCOUNTER 2024-11-22 02:07 | Outpatient (CLI) | payer BC, OTHER, SELFPAY ==
--- NOTE | 2024-11-22 13:28 | DI.MAMMO_ITS ---
Exam(s) MAMMO SCREENING EXAM: MAMMO SCREENING CLINICAL HISTORY: screening TECHNIQUE: Mammograms were interpreted according to the usual protocol including computer analysis w Exclusively.in CAD system, tomosynthesis and C-view imaging. COMPARISON: 2017 and 2020 FINDINGS: The breasts are composed of scattered fibroglandular densities, Breast Density category B. No suspicious masses or suspicious microcalcifications are seen. Stable area nodularity in the upper outer quadrant of the right breast. No skin thickening or abnormal axillary lymph nodes are seen. There has been no significant change from prior exams. IMPRESSION: BI-RADS Category 2 - Benign Findings Yearly screening mammography is recommended. Breast Density - Category B, scattered fibroglandular densities. A negative radiographic report should not delay biopsy if a dominant or clinically suspicious mass is present. Up to ten percent of cancers are not identified on mammography. A negative report may reinforce clinical impression. Adenosis and dense breasts may obscure an underlying neoplasm. False positive reports average 6 to 10%. Patient will receive a letter notifying them of these results.
== END 2024-11-22 02:27 ==
PROVIDERS: PCP Nurse Practitioner Family; Visit Provider Obstetrics & Gynecology
DX: Z12.31 Encounter for screening mammogram for malignant neoplasm of breast (principal); R92.323 Mammographic fibroglandular density, bilateral breasts; D24.1 Benign neoplasm of right breast
CPT/HCPCS: 77063; 77067

== ENCOUNTER 2025-06-04 12:22 | Outpatient (CLI) | payer BC, OTHER, SELFPAY ==
[2025-06-04 13:09] LABS: Hemoglobin A1C 6.3 % (<5.7)
[2025-06-04 13:38] LABS: ALT 32 U/L (14-59); AST 19 U/L (15-37); Albumin 3.7 g/dL (3.4-5.0); Alkaline Phosphatase 80 U/L (46-116); Anion Gap 9.9 mmol/L (3-11); BUN 9 mg/dL (7-18); Bilirubin, Total 0.3 mg/dL (0.2-1.0); CO2 27.1 mmol/L (21.0-32.0); Calcium 8.9 mg/dL (8.5-10.1); Calculated LDL 162 mg/dL (<100); Chloride 103 mmol/L (98-107); Cholesterol 267 mg/dL (<200); Estimated GFR 104.65 (mL/min/1.73m2); Glucose 104 mg/dL (74-106); HDL Cholesterol 44 mg/dL (>or=50); Magnesium 1.7 mg/dL (1.8-2.4); Potassium 3.2 mmol/L (3.5-5.1); Sodium 140 mmol/L (136-145); Total Protein 7.2 g/dL (6.4-8.2); Triglyceride 305 mg/dL (<150)
[2025-06-04 16:09] LABS: Vitamin D 25 Total 28 ng/mL (30-100)
[2025-06-05 08:32] LABS: Hep A Total Ab w Rflx IgM Positive (Negative)
== END 2025-06-04 12:23 | disposition home or self-care (01) ==
LOC: LBO 12:26
PROVIDERS: PCP Nurse Practitioner Family; Visit Provider Nurse Practitioner Family
DX: I10 Essential (primary) hypertension (principal); E78.5 Hyperlipidemia, unspecified; R73.03 Prediabetes; E55.9 Vitamin D deficiency, unspecified; B15.9 Hepatitis A without hepatic coma; R79.9 Abnormal finding of blood chemistry, unspecified
CPT/HCPCS: 36415; 80053; 80061; 82306; 86709; 83036; 83735; 84207

== ENCOUNTER 2025-06-05 13:35 | Outpatient (CLI) | payer BC, OTHER, SELFPAY ==
[2025-06-08 22:53] LABS: Pyridoxal 5-Phosphate (PLP), P 5 mcg/L (5-50)
== END 2025-06-05 13:36 | disposition home or self-care (01) ==
LOC: LBO 13:36
PROVIDERS: PCP Nurse Practitioner Family; Visit Provider Nurse Practitioner Family
DX: E78.5 Hyperlipidemia, unspecified (principal); R73.03 Prediabetes; E55.9 Vitamin D deficiency, unspecified; B15.9 Hepatitis A without hepatic coma; I10 Essential (primary) hypertension
CPT/HCPCS: 84207

== ENCOUNTER 2025-06-26 09:26 | Emergency (ER) | payer BC, OTHER, SELFPAY ==
[2025-06-26] VITALS (20 sets, daily range): BP systolic 121–147; BP diastolic 55–70; PULSE 66–81; RESP 11–18; TEMP 36.8; O2SAT 93–100
--- NOTE | 2025-06-26 09:15 | RT.EKG_ITS ---
APPROVED REPORT Exam: Resting ECG Reason for Exam: Chest Pain Patient Location: E HR:72 bpm ECG Measurements Heart Rate 72 AXIS TX 140 P 128 QRSd 75 QRS 160 QT 396 T 153 QTc 435 Conclusion Right and left arm electrode reversal, interpretation assumes no reversal Sinus rhythm...normal P axis, V-rate 60- 99 Probable lateral infarct, age indeterminate...Q >35mS, T neg, V5-V6 I aVL No STEMI
--- NOTE | 2025-06-26 09:30 | DI.CT_ITS ---
Exam(s) CT CHEST PE CTA EXAM: CT CHEST PE CTA CLINICAL HISTORY: pleuritic R side CP. TECHNIQUE: Imaging Protocol: CT angiography of the chest was performed using pulmonary embolus protocol. Multi planar reconstructions were performed. CONTRAST MATERIAL: Intravenous: Omnipaque 350 Contrast volume: 100 cc COMPARISON: CT CT ABDOMEN PELVIS W from 06/04/[address] CHEST LUNG CANCER SCREEN from 09/18/2024 FINDINGS: CHEST: PULMONARY ARTERIES: There are no intraluminal filling defects to suggest acute pulmonary emboli. LUNGS: There are no infiltrates nor evidence of pulmonary infarction.. There is a small 3 mm noncalcified nodule in the anterior segment of the left upper lobe, more evident than on prior studies. There are no pleural effusions. MEDIASTINUM: There is no hilar nor mediastinal adenopathy. Visualized thyroid unremarkable. CARDIAC: Heart size is upper normal. There is no pericardial effusion.Caliber of the thoracic aorta is within normal limits. No evidence of aortic dissection. There is no significant shift of the interventricular septum. No reflux of IV contrast into the intrahepatic IVC. PARTIALLY VISUALIZED UPPERMOST ABDOMEN: There are bilateral adrenal masses again noted which appear unchanged from the prior CT scans of September 2024 and May 2020 and there therefore most probably benign adenomas. OSSEOUS: No fractures. No lytic osseous lesions. There is a nonexpansile sclerotic bone lesion in the anterior aspect of T10 vertebral body which is unchanged from CT scan of 2019 and therefore most probably a benign bone island.. IMPRESSION: 1. No evidence of acute pulmonary emboli. No evidence of pulmonary infarction.No infiltrates nor pleural effusions. 2. There is a small noncalcified 3 mm nodule in the anterior segment of the left upper lobe. Recommend repeat CT scan in 6 months to ensure stability. 3. Stable benign-appearing sclerotic bone lesion in the T10 vertebral body, unchanged from at least 2019. RADIATION DOSE DELIVERED: 148.58mGy.cm Total DLP DATA REPOSITORY: All CT scans at this facility are submitted to the National Radiology Data Registry (NRDR) Dose Index Registry (DIR) with the [employer] (ACR). RADIATION OPTIMIZATION: All CT scans at this facility use at least one of these dose optimization techniques: automated exposure control; mA and/or kV adjustment per patient size (includes targeted exams where dose is matched to clinical indication); or iterative reconstruction.
[2025-06-26] MEDS: Normal Saline - Diluent 50 ML VIAL IJ (09:49)
[2025-06-26] MEDS: Normal Saline Flush 10 ML SYR IVP (09:49)
[2025-06-26] MEDS: Omnipaque 350 MG/ML 500 ML BTL-Imaging package IJ (09:51)
[2025-06-26 09:53] LABS: Abs Immature Grans 0.04 10^3/uL (0.0-0.06); HCT 40.7 % (36.0-46.0); HGB 13.5 g/dL (11.2-15.7); Immature Grans % 0.4 %; MCH 27.4 pg (27.0-33.0); MCHC 33.2 % (32.0-36.0); MCV 83 fL (80-95); MPV 9.4 fL (8.0-11.0); Platelet Count 330 10^3/uL (130-400); RBC 4.92 10^6/uL (3.93-5.22); RDW 14.4 % (11.7-14.6); RDW-SD 43.9 fL; WBC 9.70 10^3/uL (4.4-10.8)
[2025-06-26 09:56] LABS: ESR 38 mm/hr (0-30)
[2025-06-26 10:09] LABS: ALT 32 U/L (14-59); AST 18 U/L (15-37); Albumin 3.9 g/dL (3.4-5.0); Alkaline Phosphatase 79 U/L (46-116); Anion Gap 13.1 mmol/L (3-11); BUN 8 mg/dL (7-18); Bilirubin, Total 0.4 mg/dL (0.2-1.0); C-Reactive Protein 2.28 mg/dL (<or=0.5); CO2 25.9 mmol/L (21.0-32.0); Calcium 9.3 mg/dL (8.5-10.1); Chloride 101 mmol/L (98-107); Estimated GFR 89.15 (mL/min/1.73m2); Glucose 103 mg/dL (74-106); Lipase 34 U/L (<78); Potassium 3.2 mmol/L (3.5-5.1); Sodium 140 mmol/L (136-145); Total Protein 7.7 g/dL (6.4-8.2); Troponin I 4 ng/L (<or=51)
--- NOTE | 2025-06-26 10:18 | W.ED.GENAD ---
Discharge Plan Disposition Patient Disposition: Home Condition: Stable Discharge Details Clinical Impression: Chest pain of uncertain etiology Primary Care Provider: Ledy Crain ED Provider: Sreekanth Guzmán Home Meds and New Rx's Prescriptions: Continued norethindrone (contraceptive) 0.35 mg tablet See Rx Instructions .ROUTE .COMPLEX Qty: 84 3RF Dose Instruction: TAKE 1 TABLET BY MOUTH DAILY Rx Instructions: TAKE 1 TABLET BY MOUTH DAILY bupropion HCl 150 mg tablet extended release 24 hr 150 mg PO QAM hydrochlorothiazide 25 mg tablet 25 mg PO QAM sertraline 50 mg tablet 50 mg PO BID hydroxyzine HCl 10 mg tablet 10 mg PO QHS multivitamin [Multi-Day] 1 EACH tablet 1 tab PO DAILY lisinopril 10 mg tablet 20 mg PO DAILY ibuprofen [Ibuprofen IB] 200 mg Tablet 400 mg PO PRN PRN Discharge Instructions Instructions: Chest Pain, Adult ED Additional Instructions: You were seen in the emergency department for your chest pain ongoing this morning, there is no evidence of elevated cardiac enzymes, no blood clot in the lungs seen on your CAT scan, no elevation of pancreatic enzymes which can feel like chest pain, no pneumonia, no popped lung or other pulmonary abnormality-you do have a 3 mm nodule in the left upper lung that your primary care want to follow perhaps with a CAT scan in about 6 to 12 months. Please follow-up with them for timing of a recommended echocardiogram and stress test at a cardiology outpatient visit, please return to the emergency department for any severe increase chest pain especially with respiratory distress, shortness of breath, sweating or near fainting. Referrals: Ledy Crain [Primary Care Provider, Medicine] Discharge Data Discharge Date/Time-TO BE ENTERED AT DEPARTURE: 06/26/25 11:53 HPI General Date/Time Provider Initiated Documentation: 06/26/25 09:39. HPI Narrative: 50 year-old female presents to ED today by POV/ambulating with a chief complaint of R sided chest pain with onset one hour prior to arrival, worse with deep breathing. Quality described as sharp R sided chest pain, no radiation to dizziness, diaphoresis, shortness of breath, near syncope, nausea/vomiting. Severity is described as moderate to severe. Palliating factors include nothing specific attempted. Provoking factors include nothing specific. Patient not anticoagulated. Related Data Home Medications ?Medication ?Instructions ?Recorded ?Confirmed multivitamin (Multi-Day tablet) 1 tab PO DAILY 03/31/16 06/26/25 ibuprofen 200 mg tablet (Ibuprofen 400 mg PO PRN PRN 07/18/20 06/26/25 IB) norethindrone (contraceptive) 0.35 See Rx Instructions .Route 08/10/24 06/26/25 mg tablet .COMPLEX #84 tabs bupropion HCl 150 mg 24 hr tablet, 150 mg PO QAM 03/27/25 06/26/25 extended release hydrochlorothiazide 25 mg tablet 25 mg PO QAM 03/27/25 06/26/25 sertraline 50 mg tablet 50 mg PO BID 03/27/25 06/26/25 hydroxyzine HCl 10 mg tablet 10 mg PO QHS 03/29/25 06/26/25 lisinopril 10 mg tablet 20 mg PO DAILY 06/26/25 06/26/25 Previous Rx's ?Medication ?Instructions ?Recorded norethindrone (contraceptive) 0.35 See Rx Instructions .Route 08/10/24 mg tablet .COMPLEX #84 tabs Allergies Allergy/AdvReac Type Severity Reaction Status Date / Time escitalopram Allergy Severe Intrusive Verified 06/26/25 09:37 thoughts Sulfa (Sulfonamide Allergy Severe Hives Verified 06/26/25 09:37 Antibiotics) General Stated Complaint: Chest Pain GEORGI: 2 Review of Systems All systems reviewed & are unremarkable except as noted in HPI and below Exam Narrative Exam Narrative: GENERAL APPEARANCE: Well-nourished, non-toxic, awake and alert, atraumatic, no acute distress. SKIN: Warm, pink, dry, intact, without rashes/lesions/ulcerations. HEAD: Normocephalic, atraumatic, normal hair distribution for gender/age. EYES: Normal conjunctiva, no exudates on lids/lashes. ENT: Nares patent, no circumoral cyanosis, no facial swelling NECK: Supple, trachea midline, painless cervical ROM. LUNGS/CHEST: Lungs CTA bilaterally- no rhonchi/rales/wheezes diffusely, non-labored respirations, normal A/P diameter, symmetrical expansion, no chest wall deformity, R sided chest tenderness without crepitus HEART (CV/PV): Regular rate and rhythm without murmur, no peripheral edema, no JVD. ABDOMEN: Soft, non-distended, no guarding. MSK: Normal ROM, no swelling/deformity to bilateral UEs or LEs, moving all extremities without weakness, no cyanosis, spine midline without tenderness, normal curvature. NEURO: Mental Status AAOx4 - alert to person, place, time, events No facial droop, no forehead involvement. Motor: No focal weakness - strength 5/5 in bilateral UEs and LEs, proximal and distal, symmetric. Sensory: sensation intact to light touch globally. Gait normal: patient ambulated without ataxia into ED room. PSYCH: euthymic, cooperative, pleasant, appropriate speech Course Vital Signs Vital signs: Vital Signs Temperature 36.8 C 06/26/25 09:34 Pulse 76 06/26/25 09:34 Respiratory Rate 12 06/26/25 09:34 Blood Pressure 145/65 H 06/26/25 09:34 Pulse Oximetry 93 06/26/25 09:34 Temperature 36.8 C 06/26/25 09:34 Temperature Source Oral 06/26/25 09:34 Pulse 76 06/26/25 09:34 Respiratory Rate 12 06/26/25 09:42 Respiratory Effort Normal, Non-Labored 06/26/25 09:42 Respiratory Depth Normal 06/26/25 09:42 Respiratory Pattern Normal 06/26/25 09:42 Blood Pressure 145/65 H 06/26/25 09:34 Blood Pressure Position Sitting 06/26/25 09:34 Pulse Oximetry 93 06/26/25 09:34 Oxygen Delivery Method Room Air 06/26/25 09:34 Oxygen Flow Rate 0 06/26/25 09:34 Lab/Test Results Lab/Test Results: Laboratory Tests Range/Units 06/26/25 09:45 WBC (4.4-10.8) 10^3/uL 9.70 RBC (3.93-5.22) 10^6/uL 4.92 Hgb (11.2-15.7) g/dL 13.5 Hct (36.0-46.0) % 40.7 MCV (80-95) fL 83 MCH (27.0-33.0) pg 27.4 MCHC (32.0-36.0) % 33.2 RDW (11.7-14.6) % 14.4 Plt Count (130-400) 10^3/uL 330 MPV (8.0-11.0) fL 9.4 Immature Gran % % 0.4 Neutrophils % % 60.7 Lymphocytes % % 31.3 Monocytes % % 5.7 Eosinophils % % 1.4 Basophils % % 0.5 Nucleated RBC % (0.0-0.3) % 0.0 Absolute Neutrophils (1.2-6.7) 10^3/uL 5.88 Absolute Lymphocytes (1.2-3.4) 10^3/uL 3.04 Absolute Monocytes (0.1-0.8) 10^3/uL 0.55 Absolute Eosinophils (0.0-0.7) 10^3/uL 0.14 Absolute Basophils (0.0-0.2) 10^3/uL 0.05 Sodium (136-145) mmol/L 140 Potassium (3.5-5.1) mmol/L 3.2 L Chloride (98-107) mmol/L 101 Carbon Dioxide (21.0-32.0) mmol/L 25.9 Anion Gap (3-11) mmol/L 13.1 H BUN (7-18) mg/dL 8 Creatinine (0.55-1.02) mg/dL 0.8 Est GFR (CKD-EPI 2020) (mL/min/1.73m2) 89.15 Glucose (74-106) mg/dL 103 Calcium (8.5-10.1) mg/dL 9.3 Total Bilirubin (0.2-1.0) mg/dL 0.4 AST (15-37) U/L 18 ALT (14-59) U/L 32 Alkaline Phosphatase (46-116) U/L 79 Troponin I (<or=51) ng/L 4 C-Reactive Protein (<or=0.5) mg/dL 2.28 H Total Protein (6.4-8.2) g/dL 7.7 Albumin (3.4-5.0) g/dL 3.9 Lipase (<78) U/L 34 Medical Decision Making This dictation utilizes [id number] dictation software and may contain unedited grammatical errors. 50 year-old female presents to ED today by POV/ambulating with a chief complaint of R sided chest pain with onset one hour prior to arrival, worse with deep breathing. Quality described as sharp R sided chest pain, no radiation to dizziness, diaphoresis, shortness of breath, near syncope, nausea/vomiting. Severity is described as moderate to severe. Palliating factors include nothing specific attempted. Provoking factors include nothing specific. Patients' medical history: GERD, prediabetes, smoking history, hypertension endorses rheumatoid arthritis. Family and social history: No exercise regimen, long-term smoking history Pertinent exam findings / vital signs include R pleuritic chest tenderness without crepitus, lungs CTA, benign cardiac exam, benign abdomen, neuro intact, stable vitals. Differential / pathologies of concern include ACS, PE, pneumonia, pleurisy, costochondritis. Diagnostic studies of: - CBC, CMP, CRP/ESR, serial troponins, lipase, EKG, CTA chest PE study. - CBC without acute abnormality - CRP and ESR relatively benign with a mild elevation of CRP to 2.28 - Lipase negative - Serial troponins negative - CTA of the chest shows isolated 3 mm pulmonary nodule recommend surveillance, no PE or infiltrate - EKG shows sinus rhythm at 72 bpm with P waves followed by a narrow complex QRS with some T wave inversions in lead I and II with submillimeter ST depression in lead II only, no concerns for acute ischemia, good R wave progression, normal axis, normal intervals Interventions of: - None. ED Course/Assessment/Plan: 50-year-old female presents with right-sided chest pain worse with breathing, has a long-term smoking history, cardiac workup negative, no PE or pneumonia, may have musculoskeletal chest pain versus pleurisy, counseled on trial of Voltaren at home however pain had improved throughout the visit here not requiring any pain intervention, I counseled her to follow-up with her PCP for routine recommendations of cardiology with a low heart score. Findings not consistent with ACS, PE, pneumonia, electrolyte abnormality, inflammatory arthritis. Disposition of Chest Pain of Uncertain Etiology. Patient verbalized understanding of the plan and return to ED criteria and engaged in shared decision making. Medical Records Medical records reviewed: Yes I reviewed the patient's medical records. Imaging Data Radiologic Study: Attestation: I personally reviewed and interpreted this imaging study as follows: Imaging: CT Scan Radiologist's impression: EXAM: CT CHEST PE CTA CLINICAL HISTORY: pleuritic R side CP. TECHNIQUE: Imaging Protocol: CT angiography of the chest was performed using pulmonary embolus protocol. Multi planar reconstructions were performed. CONTRAST MATERIAL: Intravenous: Omnipaque 350 Contrast volume: 100 cc COMPARISON: CT CT ABDOMEN PELVIS W from 06/04/[address] CHEST LUNG CANCER SCREEN from 09/18/2024 FINDINGS: CHEST: PULMONARY ARTERIES: There are no intraluminal filling defects to suggest acute pulmonary emboli. LUNGS: There are no infiltrates nor evidence of pulmonary infarction.. There is a small 3 mm noncalcified nodule in the anterior segment of the left upper lobe, more evident than on prior studies. There are no pleural effusions. MEDIASTINUM: There is no hilar nor mediastinal adenopathy. Visualized thyroid unremarkable. CARDIAC: Heart size is upper normal. There is no pericardial effusion.Caliber of the thoracic aorta is within normal limits. No evidence of aortic dissection. There is no significant shift of the interventricular septum. No reflux of IV contrast into the intrahepatic IVC. PARTIALLY VISUALIZED UPPERMOST ABDOMEN: There are bilateral adrenal masses again noted which appear unchanged from the prior CT scans of September 2024 and May 2020 and there therefore most probably benign adenomas. OSSEOUS: No fractures. No lytic osseous lesions. There is a nonexpansile sclerotic bone lesion in the anterior aspect of T10 vertebral body which is unchanged from CT scan of 2019 and therefore most probably a benign bone island.. IMPRESSION: 1. No evidence of acute pulmonary emboli. No evidence of pulmonary infarction.No infiltrates nor pleural effusions. 2. There is a small noncalcified 3 mm nodule in the anterior segment of the left upper lobe. Recommend repeat CT scan in 6 months to ensure stability. 3. Stable benign-appearing sclerotic bone lesion in the T10 vertebral body, unchanged from at least 2019. Lab Data Lab results reviewed: Yes I reviewed the patient's lab results. Labs: Laboratory Tests Range/Units 06/26/25 06/26/25 09:45 10:41 WBC (4.4-10.8) 10^3/uL 9.70 RBC (3.93-5.22) 10^6/uL 4.92 Hgb (11.2-15.7) g/dL 13.5 Hct (36.0-46.0) % 40.7 MCV (80-95) fL 83 MCH (27.0-33.0) pg 27.4 MCHC (32.0-36.0) % 33.2 RDW (11.7-14.6) % 14.4 Plt Count (130-400) 10^3/uL 330 MPV (8.0-11.0) fL 9.4 Immature Gran % % 0.4 Neutrophils % % 60.7 Lymphocytes % % 31.3 Monocytes % % 5.7 Eosinophils % % 1.4 Basophils % % 0.5 Nucleated RBC % (0.0-0.3) % 0.0 Absolute Neutrophils (1.2-6.7) 10^3/uL 5.88 Absolute Lymphocytes (1.2-3.4) 10^3/uL 3.04 Absolute Monocytes (0.1-0.8) 10^3/uL 0.55 Absolute Eosinophils (0.0-0.7) 10^3/uL 0.14 Absolute Basophils (0.0-0.2) 10^3/uL 0.05 ESR (0-30) mm/hr 38 H Sodium (136-145) mmol/L 140 Potassium (3.5-5.1) mmol/L 3.2 L Chloride (98-107) mmol/L 101 Carbon Dioxide (21.0-32.0) mmol/L 25.9 Anion Gap (3-11) mmol/L 13.1 H BUN (7-18) mg/dL 8 Creatinine (0.55-1.02) mg/dL 0.8 Est GFR (CKD-EPI 2020) (mL/min/1.73m2) 89.15 Glucose (74-106) mg/dL 103 Calcium (8.5-10.1) mg/dL 9.3 Total Bilirubin (0.2-1.0) mg/dL 0.4 AST (15-37) U/L 18 ALT (14-59) U/L 32 Alkaline Phosphatase (46-116) U/L 79 Troponin I (<or=51) ng/L 4 4 C-Reactive Protein (<or=0.5) mg/dL 2.28 H Total Protein (6.4-8.2) g/dL 7.7 Albumin (3.4-5.0) g/dL 3.9 Lipase (<78) U/L 34 PFSH All Active Problems (Updated 06/26/25 @ 11:36 by CARLOS So) Chest pain of uncertain etiology (Acute) Pain in right foot (Acute) Dystrophia unguium (Acute) Ingrown toenail (Acute) Essential hypertension (Acute) Insomnia (Acute) Mixed anxiety and depressive disorder (Acute) Type A viral hepatitis (Acute) GERD (gastroesophageal reflux disease) (Chronic) Prediabetes (Acute) Screen for STD (sexually transmitted disease) (Acute) Well woman exam (no gynecological exam) (Acute) Screen for STD (sexually transmitted disease) (Acute) Encounter for contraceptive management (Acute) Smoker (Acute) Bursitis of hip, right (Chronic) Sacroiliac dysfunction (Chronic) Medical History Chest pain Surgical History Cholecystectomy section Reduction mammoplasty Family History Father Anxiety Arthritis Mother Hypertension Skin cancer History of TIAs Social History Smoking/Tobacco Use Status: Current every day Tobacco: How many years used: 25 Quit status: has quit before Smoking risk assessment performed?: Yes Alcohol Intake: current Alcohol Intake frequency: a few times a month Drug use: Occasionally Substance use type: marijuana Counseling given: No Housing: apartment Do you feel safe at home: Yes Do you feel safe in your relationship?: Yes Female Reproductive History Menstrual Age of Menarche: 11 Duration of menses: 3-5 days control method: pills History History 3 Para 2 Hx # Term Pregnancies 2 Multiple births Hx # Pregnancies Ectopic pregnancies AB induced 1 Hx Number of Living Children 2 AB spontaneous
[2025-06-26 11:12] LABS: Troponin I 4 ng/L (<or=51)
== END 2025-06-26 11:53 | disposition home or self-care (01) ==
PROVIDERS: Emergency Provider Physician Assistant; PCP Nurse Practitioner Family
DX: R07.9 Chest pain, unspecified (principal)
CPT/HCPCS: 99283; 99285; 36415; 71275; 80053; 83690; 85652; 93005; 84484; 85025; 86140; 93010

== ENCOUNTER 2025-08-24 14:19 | Outpatient (REF) | payer BC, OTHER, SELFPAY ==
--- NOTE | 2025-08-24 13:00 | PAPFT_PTH ---
PATIENT: Rupali Hadley LOC: [facility] U#:[id number] AGE/SX: 50/F ROOM: RE08/24/[address]: Laurita Real DO : 1975 BED: DIS: 08/24/2025 SPEC #: [id number] RECD: 08/24/25 17:30 STATUS: SIMEON REMalathi #: [id number] YAN: 08/24/25 13:[address]: Laurita Rela DEPT: [facility] Cytology RECD BY: Celine Nguyen ENTERED: 08/24/25 17:30 SP TYPE: PAPFT OTHR DR: Ledy Crain Tissues: 1 - CX/ENDOCX FOR PAP SMEARS Procedures: PAP THIN PREP/[facility] Screening HPV DNA PROBE Comments: [id number] (HPV 16 & 18/45)
== END 2025-08-24 14:20 | disposition home or self-care (01) ==
LOC: LBN 14:19
PROVIDERS: PCP Nurse Practitioner Family; Visit Provider Obstetrics & Gynecology
DX: Z12.4 Encounter for screening for malignant neoplasm of cervix (principal)
CPT/HCPCS: 88142; 87624